=== PATIENT | female | born 1945 | race Caucasian/White ===

== ENCOUNTER → 2017-08-10 10:48 | Outpatient (CLI) | payer MEDICARE, OTHER, SELFPAY ==
[2017-08-10 12:30] LABS: Vitamin D,25 Hydroxy 35.5 ng/mL (19.95-100.01)
[2017-08-10 12:52] LABS: ALB/GLOB Ratio 0.9 RATIO (0.9-2.4); AST(SGOT) 27 U/L (15-37); Alanine Aminotransfer ALT/SGPT 30 U/L (13-56); Albumin, Serum 3.6 g/dL (3.2-5.0); Alkaline Phosphatase 84 U/L (45-117); Anion Gap 8 (5-15); BUN 15 mg/dL (7-18); BUN/Creat Ratio 23.6 RATIO (10-20); Calcium,Total 8.6 mg/dL (8.5-10.1); Chloride 103 mmol/L (98-107); Creatinine, Serum 0.64 mg/dL (0.55-1.02); EST Glomerular Filtration Rate 97 mL/min (>60); Est Glom Filt Rate - Afr Amer 118 mL/min (>60); Free T3 2.3 pg/mL (2.18-3.98); Glucose 109 mg/dL (74-106); Potassium 3.9 mmol/L (3.5-5.1); Protein, Total 7.6 g/dL (6.4-8.2); Sodium Level 138 mmol/L (136-145); T4 Free Direct 1.17 ng/dL (0.76-1.46); Thyroid Stim Hormone (TSH) 1.46 uIU/mL (0.358-3.74)
== END ==
PROVIDERS: Family Provider Family Medicine; PCP Family Medicine; Visit Provider Internal Medicine Endocrinology, Diabetes & Metabolism
DX: E05.00 Thyrotoxicosis with diffuse goiter without thyrotoxic crisis or storm (principal); E55.9 Vitamin D deficiency, unspecified
CPT/HCPCS: 36415; 80053; 82306; 84439; 84443; 84481

== ENCOUNTER 2017-09-28 06:40 | Day surgery (SDC) | payer MEDICARE, OTHER, SELFPAY ==
[2017-09-28 07:10] VITALS: BP 167/78; PULSE 73; TEMP 36.5; O2SAT 98; BMI 29.5
[2017-09-28 08:32] VITALS: BP 117/55; BP 167/78; PULSE 67; RESP 16; TEMP 36.3; O2SAT 93
--- NOTE | 2017-09-28 08:33 | HP.PCM_ITS ---
Problem List (1) History of colon polyps Status: Acute History of Present Illness Date of Admission: 09/28/17 The patient is a 72 year old F with a history of colon polyps. She presents today for a repeat colonoscopy. Past Medical History Past Medical History (Chronic Problems): Chronic Problems Osteoarthritis (Chronic) Hypertension (Chronic) Obesity (BMI 30.0-34.9) (Chronic) Allergies Sulfa (Sulfonamide Antibiotics) Allergy (Verified 09/24/17 09:16) Hives ciprofloxacin [From Cipro] Adverse Reaction (Verified 09/24/17 09:16) Diarrhea prednisone Adverse Reaction (Verified 09/24/17 09:16) Other PAIN IN LEGS Home Medications: Ambulatory Orders Medication Instructions Recorded Cranberry 900 mg PO DAILY 09/25/15 L.acidoph,Paracasei, B.lactis 1 each PO DAILY 09/25/15 [Probiotic] Calcium Carbonate/Vitamin D3 2 each PO DAILY 05/09/16 [Calcium 500-Vit D3 200 Tablet] Ergocalciferol [Vitamin D] 50,000 unit PO Q14D 05/09/16 Methimazole [Tapazole] 2.5 mg PO MOWEFR 05/09/16 Vit C/E/Zn/Coppr/Lutein/Zeaxan 1 each PO DAILY 05/09/16 [Preservision Areds 2 Softgel] Surgical History: cholecystectomy - 1989, hysterectomy - 1982 Psychiatric History: No pertinent psych hx [employer] 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 Smoking Status: Never smoker - *Family History Maternal History Items: Cancer, Heart Disease Paternal History Items: No pertinent history VTE Information - Inpt Only VTE Present on Admission: No VTE Mechan Device Prophylaxis: None VTE Pharm Prophylaxis ordered?: No Reason prophylaxis not ordered:: Treatment Not Indicated Patient Problems: Active and Suspected Problems History of colon polyps (Acute) - Physical Exam Lungs: Clear to auscultation Cardiovascular: Regular rate, Regular Rhythm, No murmurs Abdomen: Bowel Sounds Present, Soft, Non Tender, Non-Distended Vital Signs Temp Pulse BP Pulse Ox 97.7 F L 73 167/78 H 98 09/28/17 07:10 09/28/17 07:10 09/28/17 07:10 09/28/17 07:10 Oxygen Delivery Method Room Air Weight: 177 lb 4.026 oz Body Mass Index (BMI) 29.5 Assessment/Plan Active and Suspected Problems History of colon polyps (Acute) My plan is to perform a colonoscopy on her.
--- NOTE | 2017-09-28 08:33 | PCM.OPRPT ---
Problem List (1) History of colon polyps Status: Acute Report of Operation Date of Procedure: 09/28/17 Pre-Operative Diagnosis: Z86.010 history of colonic polyps Post-Operative Diagnosis: Same Surgery/Procedure Performed:: [id number] colonoscopy Type of Anesthesia:: MAC Description of Procedure: Patient was brought into the endoscopy suite. Placed in the left lateral decubitus position. Was given graded anesthesia. Colonoscope was inserted into the rectum. The scope was directed through the sigmoid colon, descending colon, transverse colon, ascending colon, to the cecum without difficulty. Operative findings: 1. Cecum: Normal appearance no mass lesions normal ileocecal valve. 2. Ascending colon: Normal appearance no mass lesions. 3. Transverse colon: Normal appearance no mass lesions. 4. Descending colon: Normal appearance no mass lesions. 5. Sigmoid colon: Normal appearance no mass lesions scattered diverticuli were identified. 6. Rectum: Normal appearance no mass lesions retroflexion showed internal hemorrhoids the scope was withdrawn digital rectal exam was performed showing no masses within the anus. Patient will need to have another colonoscopy in 5 years. - Admit VTE Documentation VTE Present on Admission: No VTE Mechan Device Prophylaxis: None VTE Pharm Prophylaxis ordered?: No Reason prophylaxis not ordered:: Treatment Not Indicated
[2017-09-28 08:35] VITALS: BP 120/58; BP 167/78; PULSE 66; RESP 16; O2SAT 97
[2017-09-28 08:40] VITALS: BP 121/60; BP 167/78; PULSE 64; RESP 16; O2SAT 95
[2017-09-28 08:47] VITALS: BP 123/59; BP 167/78; PULSE 58; RESP 16; TEMP 37.2; O2SAT 95
== END 2017-09-28 09:20 | disposition home or self-care (01) ==
LOC: EN 06:42 → AC 06:43
PROVIDERS: Family Provider Family Medicine; PCP Family Medicine; Visit Provider Surgery
PROC: 0DJD8ZZ Inspection of Lower Intestinal Tract, Via Natural or Artificial Opening Endoscopic (ICD-10-PCS; CPT 45378; principal; 2017-09-28 08:10)
DX: Z12.11 Encounter for screening for malignant neoplasm of colon (principal); Z86.010 Personal history of colon polyps; I10 Essential (primary) hypertension; M19.90 Unspecified osteoarthritis, unspecified site; E66.9 Obesity, unspecified; Z68.29 Body mass index [BMI] 29.0-29.9, adult; Z79.899 Other long term (current) drug therapy; Z78.0 Asymptomatic menopausal state; Z90.710 Acquired absence of both cervix and uterus; Z90.49 Acquired absence of other specified parts of digestive tract
CPT/HCPCS: G0105; J7120

== ENCOUNTER → 2017-10-08 12:10 | Outpatient (CLI) | payer MEDICARE, OTHER, SELFPAY ==
[2017-10-08 14:36] LABS: Thyroid Stim Hormone (TSH) 0.17 uIU/mL (0.358-3.74)
== END ==
PROVIDERS: Family Provider Family Medicine; PCP Family Medicine; Visit Provider Internal Medicine Endocrinology, Diabetes & Metabolism
DX: E05.00 Thyrotoxicosis with diffuse goiter without thyrotoxic crisis or storm (principal)
CPT/HCPCS: 36415; 84443

== ENCOUNTER → 2017-10-30 12:13 | Outpatient (CLI) | payer MEDICARE, OTHER, SELFPAY ==
[2017-10-30 14:04] LABS: Absolute Lymphocyte Count 1.87 X10^3/ul (0.83-4.51); Absolute Neutrophil Count 3.9 X10^3/uL (2.0-7.7); Basophil# 0.02 X10^3/uL; Basophil% 0.3 % (0-1); Eosinophil# 0.26 X10^3/uL; Hematocrit 41.8 % (37-47); Hemoglobin 13.9 g/dl (12.0-15.0); Lymphocyte # 1.87 X10^3/ul (4.0); Lymphocyte % 28.7 % (19-41); Mean Corp Hgb Conc 33.3 g/gl (32-36); Mean Corpuscular Hgb 31.4 pg (27.0-32.0); Mean Corpuscular Volume 94.4 fL (81-99); Mean Platelet Vol. 10.8 fl (6.2-12.0); Monocyte# 0.47 X10^3/uL; Monocyte% 7.2 % (0-10); Neutrophil # 3.89 X10^3/uL (2.7-7.7); Neutrophil % 59.8 % (47-70); Platelet Count 248 K/mm3 (150-450); RBC Distribution Width CV 12.1 % (11.6-14.6); RBC Distribution Width SD 41.2 fl (35.1-43.9); Red Blood Count 4.43 M/mm3 (4.2-5.4); White Blood Count 6.5 K/mm3 (4.4-11.0)
[2017-10-30 14:09] LABS: POSITIVE COUNT NO; POSITIVE DIFFERENTIAL NO; POSITIVE MORPHOLOGY NO
[2017-10-30 14:33] LABS: Erythrocyte Sedimentation Rate 17 mm/hr (0-30)
== END ==
PROVIDERS: Family Provider Family Medicine; PCP Family Medicine; Visit Provider Family Medicine
DX: R59.0 Localized enlarged lymph nodes (principal)
CPT/HCPCS: 36415; 85025; 85652

== ENCOUNTER → 2017-11-12 11:45 | Outpatient (CLI) | payer MEDICARE, OTHER, SELFPAY ==
[2017-11-12 13:43] LABS: ALB/GLOB Ratio 0.9 RATIO (0.9-2.4); AST(SGOT) 33 U/L (15-37); Alanine Aminotransfer ALT/SGPT 32 U/L (13-56); Albumin, Serum 3.6 g/dL (3.2-5.0); Alkaline Phosphatase 100 U/L (45-117); Anion Gap 4 (5-15); BUN 19 mg/dL (7-18); BUN/Creat Ratio 29.7 RATIO (10-20); Calcium,Total 9.5 mg/dL (8.5-10.1); Chloride 106 mmol/L (98-107); Creatinine, Serum 0.64 mg/dL (0.55-1.02); EST Glomerular Filtration Rate 97 mL/min (>60); Est Glom Filt Rate - Afr Amer 117 mL/min (>60); Free T3 2.3 pg/mL (2.18-3.98); Glucose 95 mg/dL (74-106); Potassium 3.9 mmol/L (3.5-5.1); Protein, Total 7.6 g/dL (6.4-8.2); Sodium Level 140 mmol/L (136-145); T4 Total, Thyroxin 10.8 ug/dL (4.8-13.9)
[2017-11-14 07:08] LABS: Thyroid Stim Immunoglob 1.23 IU/L (0.00-0.55)
[2017-11-14 10:45] LABS: Anti-Thyroglobulin AB < 1.0 IU/mL (0.0-0.9); Thyroglobulin, Serum Qt. 52.7 ng/mL (1.5-38.5); Thyroid Peroxidase AB 15 IU/mL (0-34)
== END ==
PROVIDERS: Family Provider Family Medicine; PCP Family Medicine; Visit Provider Internal Medicine Endocrinology, Diabetes & Metabolism
DX: E05.20 Thyrotoxicosis with toxic multinodular goiter without thyrotoxic crisis or storm (principal)
CPT/HCPCS: 36415; 80053; 84432; 84436; 84445; 84481; 86376; 86800

== ENCOUNTER → 2017-12-21 11:34 | Outpatient (CLI) | payer MEDICARE, OTHER, SELFPAY ==
[2017-12-21 12:57] LABS: ALB/GLOB Ratio 0.8 RATIO (0.9-2.4); AST(SGOT) 26 U/L (15-37); Alanine Aminotransfer ALT/SGPT 29 U/L (13-56); Albumin, Serum 3.4 g/dL (3.2-5.0); Alkaline Phosphatase 90 U/L (45-117); Anion Gap 8 (5-15); BUN 14 mg/dL (7-18); BUN/Creat Ratio 22.3 RATIO (10-20); Calcium,Total 8.5 mg/dL (8.5-10.1); Chloride 105 mmol/L (98-107); Cholesterol 202 mg/dL (200); Creatinine, Serum 0.63 mg/dL (0.55-1.02); EST Glomerular Filtration Rate 99 mL/min (>60); Est Glom Filt Rate - Afr Amer 119 mL/min (>60); Free T3 2.6 pg/mL (2.18-3.98); Glucose 105 mg/dL (74-106); High Density Lipoprotein 48 mg/dL; Potassium 3.8 mmol/L (3.5-5.1); Protein, Total 7.4 g/dL (6.4-8.2); Sodium Level 142 mmol/L (136-145); T4 Free Direct 1.21 ng/dL (0.76-1.46); Thyroid Stim Hormone (TSH) 0.34 uIU/mL (0.358-3.74); Triglycerides 330 mg/dL; Very Low Density Lipoprotein 66 mg/dL (5-40)
[2017-12-21 13:06] LABS: Microalbumin,Random Urine 5.6 mg/L (NO RANGE EST.); Microalbumin:Creatinine Ratio 8.4 mg/g CRE (<30 mg/g CRE)
== END ==
PROVIDERS: Family Provider Family Medicine; PCP Family Medicine; Visit Provider Family Medicine
DX: Z00.00 Encounter for general adult medical examination without abnormal findings (principal); I10 Essential (primary) hypertension; E05.00 Thyrotoxicosis with diffuse goiter without thyrotoxic crisis or storm
CPT/HCPCS: 36415; 80053; 80061; 82043; 82570; 84439; 84443; 84481

== ENCOUNTER → 2017-12-29 10:31 | Outpatient (CLI) | payer MEDICARE, OTHER, SELFPAY ==
--- NOTE | 2017-12-29 10:34 | BI_ITS ---
MAMMOGRAPHY - BILATERAL SCREENING REASON FOR EXAM: Female, 72 years old. Routine annual screening examination. PERTINENT HISTORY: Non-contributory. TECHNIQUE: Digital bilateral breast daina (3D mammographic acquisition) in the CC and MLO projections. 2-D mediolateral oblique (MLO) and craniocaudad (CC) views of both breasts were obtained. CAD: Full Field Digital Mammography with Computer Added Detection was performed. COMPARISON: Comparison is made with prior abdomen examination dated June 02, 2014. FINDINGS: Breast Composition: There are scattered areas of fibroglandular density. There are no dominant masses or suspicious calcifications. Stable appearance of the benign appearing left axillary lymph nodes. No other significant abnormalities are identified. There has been no significant change since the prior study. BI/SCREENING MAMM (CAD), BILAT IMPRESSION: Stable bilateral screening mammogram. Yearly follow-up mammogram recommended. (A) ASSESSMENT CATEGORY: BIRADS Category 2: Benign. A letter regarding these results will be sent to the patient by the facility within 30 days. Approximately 10% of breast cancers are not detected by mammography. A normal mammogram should not delay biopsy of a clinically suspicious abnormality. [id number] Electronically Signed: Casey Ríos MD at 7:57 EDT Tel [phone], Service support ,
== END ==
PROVIDERS: Family Provider Family Medicine; PCP Family Medicine; Visit Provider Family Medicine
DX: Z12.31 Encounter for screening mammogram for malignant neoplasm of breast (principal)
CPT/HCPCS: 77063; 77067

== ENCOUNTER → 2018-02-03 08:13 | Outpatient (CLI) | payer MEDICARE, OTHER, SELFPAY ==
[2018-02-03 10:51] LABS: Cholesterol 197 mg/dL (200); Free T3 2.6 pg/mL (2.18-3.98); High Density Lipoprotein 55 mg/dL; T4 Free Direct 1.16 ng/dL (0.76-1.46); Thyroid Stim Hormone (TSH) 0.73 uIU/mL (0.358-3.74); Triglycerides 114 mg/dL; Very Low Density Lipoprotein 23 mg/dL (5-40)
== END ==
PROVIDERS: Family Provider Family Medicine; PCP Family Medicine; Visit Provider Internal Medicine Endocrinology, Diabetes & Metabolism
DX: E05.00 Thyrotoxicosis with diffuse goiter without thyrotoxic crisis or storm (principal); E66.9 Obesity, unspecified
CPT/HCPCS: 36415; 80061; 84439; 84443; 84481

== ENCOUNTER → 2018-03-15 09:35 | Outpatient (CLI) | payer MEDICARE, OTHER, SELFPAY ==
[2018-03-15 13:04] LABS: Free T3 2.7 pg/mL (2.18-3.98); T4 Free Direct 1.22 ng/dL (0.76-1.46); Thyroid Stim Hormone (TSH) 0.57 uIU/mL (0.358-3.74)
== END ==
PROVIDERS: Family Provider Family Medicine; PCP Family Medicine; Visit Provider Internal Medicine Endocrinology, Diabetes & Metabolism
DX: E05.00 Thyrotoxicosis with diffuse goiter without thyrotoxic crisis or storm (principal)
CPT/HCPCS: 36415; 84439; 84443; 84481

== ENCOUNTER → 2018-04-21 12:34 | Outpatient (CLI) | payer MEDICARE, OTHER, SELFPAY ==
[2018-04-23 09:56] LABS: Anti-Thyroglobulin AB < 1.0 IU/mL (0.0-0.9); Thyroglobulin, Serum Qt. 68.6 ng/mL (1.5-38.5); Thyroid Peroxidase AB 12 IU/mL (0-34)
== END ==
PROVIDERS: Family Provider Family Medicine; PCP Family Medicine; Referring Provider Family Medicine; Visit Provider Family Medicine
DX: E05.90 Thyrotoxicosis, unspecified without thyrotoxic crisis or storm (principal)
CPT/HCPCS: 36415; 84432; 86376; 86800

== ENCOUNTER → 2018-06-15 13:55 | Outpatient (CLI) | payer MEDICARE, OTHER, SELFPAY ==
[2018-06-15 16:07] LABS: ALB/GLOB Ratio 0.9 RATIO (0.9-2.4); AST(SGOT) 26 U/L (15-37); Alanine Aminotransfer ALT/SGPT 28 U/L (13-56); Albumin, Serum 3.5 g/dL (3.2-5.0); Alkaline Phosphatase 79 U/L (45-117); Anion Gap 9 (5-15); BUN 17 mg/dL (7-18); BUN/Creat Ratio 23.6 RATIO (10-20); Calcium,Total 8.7 mg/dL (8.5-10.1); Chloride 106 mmol/L (98-107); Creatinine, Serum 0.72 mg/dL (0.55-1.02); EST Glomerular Filtration Rate 84 mL/min (>60); Est Glom Filt Rate - Afr Amer 102 mL/min (>60); Free T3 2.7 pg/mL (2.18-3.98); Globulin 3.9 g/dL (2.2-4.2); Glucose 100 mg/dL (74-106); Potassium 3.9 mmol/L (3.5-5.1); Protein, Total 7.4 g/dL (6.4-8.2); Sodium Level 141 mmol/L (136-145); T4 Total, Thyroxin 10.8 ug/dL (4.8-13.9); Thyroid Stim Hormone (TSH) 0.63 uIU/mL (0.358-3.74)
--- OUTSIDE RECORDS SUMMARY | 2018-08-01 18:48 | XMS RPT_ITS ---
:1945 Author Organization OHIP Support Name Relationship Address Phone ARNALEX LAKESHIA Unavailable [address] + [place] [address] R Unavailable Unavailable Unavailable ARNOLD, LAKESHIA Unavailable [address] + [place] [address] R Unavailable Unavailable Unavailable ARNOLD, LAKESHIA Unavailable [address] + [place] [address] R Unavailable Unavailable Unavailable ARNOLD, LAKESHIA Unavailable [address] + [place] [address] R Unavailable Unavailable Unavailable ARNOLD, LAKESHIA Unavailable [address] + [place] [address] R Unavailable Unavailable Unavailable ARNOLD, LAKESHIA Unavailable [address] + [place] [address] R Unavailable Unavailable Unavailable ARNOLD, LAKESHIA Unavailable [address] + [place] [address] R Unavailable Unavailable Unavailable ARNOLD, LAKESHIA Unavailable [address] + [place] [address] R Unavailable Unavailable Unavailable ARNOLD, LAKESHIA Unavailable [address] + [place] [address] R Unavailable Unavailable Unavailable ARNOLD, LAKESHIA Unavailable [address] + [place] [address] R Unavailable Unavailable Unavailable ARNOLD, LAKESHIA Unavailable [address] + [place] [address] R Unavailable Unavailable Unavailable ARNOLD, LAKESHIA Unavailable [address] + [place] [address] Unavailable [address] + [place] [address] LAKESHIA LANCASTER Unavailable [address] + [place] [address] Unavailable [address] + [place] [address] Care Team Providers Name Role Phone HERNANDO RAMIREZ Attending Unavailable Newell, Alex Primary Care Unavailable WIETECHA, HERNANDO Attending Unavailable WIETECHA, HERNANDO Referring Unavailable Newell, Alex Primary Care Unavailable Nurse, Surgery Attending Unavailable Newell, Alex Referring Unavailable Newell, Alex Primary Care Unavailable [place], Kedar Attending Unavailable [place], Kedar Referring Unavailable Newell, Alex Primary Care Unavailable [place], Kedar Attending Unavailable [place], Kedar Referring Unavailable Newell, Alex Primary Care Unavailable Maday, Kedar Consulting Unavailable WIETECHA, HERNANDO Attending Unavailable Newell, Alex Primary Care Unavailable Newell, Alex Attending Unavailable Newell, Alex Primary Care Unavailable WIETECHA, HERNANDO Attending Unavailable Newell, Alex Primary Care Unavailable Newell, Alex Attending Unavailable Newell, Alex Primary Care Unavailable Newell, Alex Attending Unavailable Newell, Alex Primary Care Unavailable WIETECHA, HERNANDO Attending Unavailable Newell, Alex Primary Care Unavailable WIETECHA, HERNANDO Attending Unavailable Newell, Alex Primary Care Unavailable Newell, Alex Attending Unavailable Newell, Alex Referring Unavailable Newell, Alex Primary Care Unavailable PROBLEMS PROBLEMS DATE TYPE CONDITION / CODE ATTENDING STATUS SOURCE 06/15/2018 Unknown 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 Hospital without thyrotoxic Repository crisis or storm / E05.00(ICD-10) 06/15/2018 Unknown E55.9 - Vitamin D HERNANDO RAMIREZ Active [place] deficiency, Community unspecified / Hospital E55.9(ICD-10) Repository PROCEDURES PROCEDURES No Procedure Records FoundRESULTS RESULTS COMPREHENSIVE METABOLIC Collected: 06/15/2018 Status: F Source: [place] 1:56 PM [facility] REPOSITORY TYPE CODE TESTS RESULT OUT OF RANGE REFERENCE UNITS LAB L501.0100 74-106 mg/dL Normal GLU 100 Result Comment: Fasting Glucose result from 100 to 125 mg/dL suggests IMPAIRED HOMEOSTASIS per A.D.A. criteria. Please note revised GLUCOSE reference range effective 2017. LAB L501.1000 7-18 mg/dL Normal BUN 17 LAB L501.1100 0.55-1.02 mg/dL Normal CREAT,SERUM 0.72 Result Comment: The validity of the calculated GFR AND GFRAA in patients over 70 years has not been determined. Clinical correlation is essential. LAB L501.1110 >60 mL/min Normal EST GFR 84 Result Comment: Non- GFR Calc LAB L501.1115 >60 mL/min Normal EST GFR - AA 102 Result Comment: GFR Calc LAB L501.1300 10-20 RATIO High BUN/CRE 23.6 LAB L501.1500 6.4-8.2 g/dL T Normal PROT 7.4 LAB L501.1800 3.2-5.0 g/dL Normal ALB 3.5 LAB L501.1950 2.2-4.2 g/dL Normal GLOB 3.9 LAB L501.2000 0.9-2.4 RATIO Normal A/G 0.9 LAB L501.2200 8.5-10.1 mg/dL CA Normal 8.7 LAB L501.4100 15-37 U/L Normal AST 26 LAB L501.4305 45-117 U/L Normal ALK P 79 LAB L501.4405 13-56 U/L Normal ALT 28 LAB L501.4600 0.20-1.00 mg/dL T Normal BILI 0.40 LAB L501.5300 136-145 mmol/L NA Normal 141 LAB L501.5600 3.5-5.1 mmol/L K Normal 3.9 LAB L501.5900 98-107 mmol/L CL Normal 106 LAB L501.6100 21.0-32.0 mmol/L Normal CO2 26.0 LAB L501.6200 5-15 Normal GAP 9 Performed By: #### L500.4050, L501.71923, L501.9310, L501.9520 #### [facility] [address] [place], [place], [address] FREE T3 Collected: 06/15/2018 Status: F Source: [place] 1:56 PM [facility] REPOSITORY TYPE CODE TESTS RESULT OUT OF RANGE REFERENCE UNITS LAB L501.48611 2.18-3.98 pg/mL Normal FREE T3 2.7 Performed By: #### L500.4050, L501.89822, L501.9310, L501.9520 #### [facility] [address] [place], [address] T4 TOTAL, THYROXIN Collected: 06/15/2018 Status: F Source: [place] 1:56 PM [facility] REPOSITORY TYPE CODE TESTS RESULT OUT OF RANGE REFERENCE UNITS LAB L501.9310 4.8-13.9 ug/dL T4 Normal THYROXIN 10.8 Performed By: #### L500.4050, L501.67612, L501.9310, L501.9520 #### [facility] [address] [place], [address] THYROID STIM HORMONE Collected: 06/15/2018 Status: F Source: [place] (TSH) 1:56 PM [facility] REPOSITORY TYPE CODE TESTS RESULT OUT OF RANGE REFERENCE UNITS LAB L501.9520 0.358-3.74 uIU/mL Normal TSH 0.63 Performed By: #### L500.4050, L501.73344, L501.9310, L501.9520 #### [facility] [address] [place], [place], [address] VITAMIN D,25 HYDROXY Collected: 06/15/2018 Status: F Source: [place] 1:56 PM [facility] REPOSITORY TYPE CODE TESTS RESULT OUT OF RANGE REFERENCE UNITS LAB L506.1000 29.95-100.01 ng/mL Normal Vitamin D 63.0 25-OH Result Comment: Vitamin D 25(OH) Status Range Deficiency <20 ng/mL (50nmol/L) Insuffciency 20 - 30 ng/mL (50 - 75 nmol/L) Sufficiency 30 - 100 ng/mL (75 - 250 nmol/L) Toxicity >100 ng/mL (>250 nmol/L) Performed By: #### L506.1000 #### [facility] [address] [place], [address] THYROGLOBULIN W/ANTI-TG Collected: 04/21/2018 Status: F Source: [place] AB 12:38 PM [facility] REPOSITORY TYPE CODE TESTS RESULT OUT OF RANGE REFERENCE UNITS LAB L3300.7025 0.0-0.9 IU/mL Normal ANTI-TG < 1.0 AB Result Comment: Thyroglobulin Antibody measured by Baldo Jeison Methodology LAB L3400.1030 1.5-38.5 ng/mL High THYROGLOB 68.6 Result Comment: According to the National Academy of Clinical Biochemistry, the reference interval for Thyroglobulin (TG) should be related to euthyroid patients and not for patients who underwent thyroidectomy. TG reference intervals for these patients depend on the residual mass of the thyroid tissue left after surgery. Establishing a post-operative baseline is recommended. The assay limit of quantitation is 0.1 ng/mL Thyroglobulin measured by Baldo [place] Immunometric Assay Performed By: #### L3300.6820 #### [facility] (refer to report for specific site) refer to report for address and phone number THYROID PEROXIDASE AB Collected: 04/21/2018 Status: F Source: [place] 12:38 PM [facility] REPOSITORY TYPE CODE TESTS RESULT OUT OF RANGE REFERENCE UNITS LAB L3300.6900 0-34 IU/mL Normal TPO AB 12 6676 Result Comment: Performed at: [address] [id number] [employer] Facilitator: Romie Styles PhD, Phone: [phone] Performed By: #### L3300.6900 #### [facility] (refer to report for specific site) refer to report for address and phone number FREE T3 Collected: 03/15/2018 Status: F Source: [place] 9:37 AM [facility] REPOSITORY TYPE CODE TESTS RESULT OUT OF RANGE REFERENCE UNITS LAB L501.10612 2.18-3.98 pg/mL Normal FREE T3 2.7 Performed By: #### L501.01094, L501.9520, L506.0400 #### [facility] [address] [place] [address], [address] THYROID STIM HORMONE Collected: 03/15/2018 Status: F Source: [place] (TSH) 9:37 AM [facility] REPOSITORY TYPE CODE TESTS RESULT OUT OF RANGE REFERENCE UNITS LAB L501.9520 0.358-3.74 uIU/mL Normal TSH 0.57 Performed By: #### L501.14805, L501.9520, L506.0400 #### [facility] [address] [place], [address] T4 FREE DIRECT Collected: 03/15/2018 Status: F Source: [place] 9:37 AM [facility] REPOSITORY TYPE CODE TESTS RESULT OUT OF RANGE REFERENCE UNITS LAB L506.0400 0.76-1.46 ng/dL Normal T4 FREE 1.22 DIRECT Performed By: #### L501.69604, L501.9520, L506.0400 #### [facility] [address] [place], [address] LIPID PROFILE Collected: 02/03/2018 Status: F Source: [place] 8:14 AM [facility] REPOSITORY Order Comment: ORDERED LIPID ORDERED TSH T3F T4F Order Date: 12/28/17 Order Info: [id number] - LIPID TYPE CODE TESTS RESULT OUT OF RANGE REFERENCE UNITS LAB L501.4900 200 mg/dL Normal CHOL 197 Result Comment: <200 mg/dL Desirable 200-240 mg/dL Borderline >240 mg/dL High Risk LAB L501.5000 mg/dL Normal TRIG 114 Result Comment: The drugs N-Acetylcysteine and Metamizole may falsely depress this assay. Serum Triglycerides Reference Interval Normal <150 mg/dL Borderline high 150 - 199 mg/dL High 200 - 499 mg/dL Very High > or = 500 mg/dL LAB L501.6400 mg/dL Normal HDL 55 Result Comment: The drugs N-Acetylcysteine and Metamizole may falsely depress this assay. Reference Range HDL <40 mg/dL Low HDL Cholesterol HDL >or= 60 mg/dL High HDL Cholesterol LAB L501.6500 0-130 mg/dL Normal LDL 119 LAB L501.6600 5-40 mg/dL Normal VLDL 23 Performed By: #### L500.4100 #### [facility] [address] [place], [address] FREE T3 Collected: 02/03/2018 Status: F Source: [place] 8:14 AM [facility] REPOSITORY Order Comment: ORDERED LIPID ORDERED TSH T3F T4F Order Date: 12/28/17 Order Info: [id number] - LIP[place] TYPE CODE TESTS RESULT OUT OF RANGE REFERENCE UNITS LAB L501.16429 2.18-3.98 pg/mL Normal FREE T3 2.6 Performed By: #### L501.97500, L501.9520, L506.0400 #### [facility] [address] [place], [address] THYROID STIM HORMONE Collected: 02/03/2018 Status: F Source: [place] (TSH) 8:14 AM [facility] REPOSITORY Order Comment: ORDERED LIPID ORDERED TSH T3F T4F Order Date: 12/28/17 Order Info: [id number] - LIP[place] TYPE CODE TESTS RESULT OUT OF RANGE REFERENCE UNITS LAB L501.9520 0.358-3.74 uIU/mL Normal TSH 0.73 Performed By: #### L501.39729, L501.9520, L506.0400 #### [facility] [address] [place], [address] T4 FREE DIRECT Collected: 02/03/2018 Status: F Source: [place] 8:14 AM [facility] REPOSITORY Order Comment: ORDERED LIPID ORDERED TSH T3F T4F Order Date: 12/28/17 Order Info: [id number] - LIPID TYPE CODE TESTS RESULT OUT OF RANGE REFERENCE UNITS LAB L506.0400 0.76-1.46 ng/dL Normal T4 FREE 1.16 DIRECT Performed By: #### L501.06949, L501.9520, L506.0400 #### [facility] [address] [place], [address] SCREENING MAMM (CAD), Observed: 12/29/2017 Status: F Source: [place] BILAT 10:35 AM [facility] REPOSITORY [facility] Imaging Services [address] [place] [id number] SCREENING MAMM (CAD), BILAT MR#: [id number] Acct: [id number] Name: KWAKU MCKEON Rep #: [id number] : 1945 F 72 From: Casey Ríos MD PCP: Alex Newell MD Status: REG CLI Study: SCREENING MAMM (CAD), BILAT Date of Exam: 12/29/17 Exam# [id number] Ordering Dr: Alex Newell MD MAMMOGRAPHY - BILATERAL SCREENING REASON FOR EXAM: Female, 72 years old. Routine annual screening examination. PERTINENT HISTORY: Non-contributory. TECHNIQUE: Digital bilateral breast daina (3D mammographic acquisition) in the CC and MLO projections. 2-D mediolateral oblique (MLO) and craniocaudad (CC) views of both breasts were obtained. CAD: Full Field Digital Mammography with Computer Added Detection was performed. COMPARISON: Comparison is made with prior abdomen examination dated June 02, 2014. FINDINGS: Breast Composition: There are scattered areas of fibroglandular density. There are no dominant masses or suspicious calcifications. Stable appearance of the benign appearing left axillary lymph nodes. No other significant abnormalities are identified. There has been no significant change since the prior study. BI/SCREENING MAMM (CAD), BILAT IMPRESSION: Stable bilateral screening mammogram. Yearly follow-up mammogram recommended. (A) ASSESSMENT CATEGORY: BIRADS Category 2: Benign. A letter regarding these results will be sent to the patient by the facility within 30 days. Approximately 10% of breast cancers are not detected by mammography. A normal mammogram should not delay biopsy of a clinically suspicious abnormality. [id number] Electronically Signed: Casey Ríos MD at 7:57 EDT Tel [phone], Service support , CC: Alex Newell MD Employment Case Manager: Signed COMPREHENSIVE METABOLIC Collected: 12/21/2017 Status: F Source: [place] 11:36 AM [facility] REPOSITORY Order Comment: Order Date: 12/17/17 Order Info: [id number] - CMP ORDERED: LIPID, JOSE RAFAEL, CMP ORDERED: CMP, TSH, T4F, T3F Order Info: [id number] - LIP[place] TYPE CODE TESTS RESULT OUT OF RANGE REFERENCE UNITS LAB L501.0100 74-106 mg/dL Normal GLU 105 Result Comment: Fasting Glucose result from 100 to 125 mg/dL suggests IMPAIRED HOMEOSTASIS per A.D.A. criteria. Please note revised GLUCOSE reference range effective 2017. LAB L501.1000 7-18 mg/dL Normal BUN 14 LAB L501.1100 0.55-1.02 mg/dL Normal CREAT,SERUM 0.63 Result Comment: The validity of the calculated GFR AND GFRAA in patients over 70 years has not been determined. Clinical correlation is essential. LAB L501.1110 >60 mL/min Normal EST GFR 99 Result Comment: Non- GFR Calc LAB L501.1115 >60 mL/min Normal EST GFR - AA 119 Result Comment: GFR Calc LAB L501.1300 10-20 RATIO High BUN/CRE 22.3 LAB L501.1500 6.4-8.2 g/dL T Normal PROT 7.4 LAB L501.1800 3.2-5.0 g/dL Normal ALB 3.4 LAB L501.1950 2.2-4.2 g/dL Normal GLOB 4.0 LAB L501.2000 0.9-2.4 RATIO Low A/G 0.8 LAB L501.2200 8.5-10.1 mg/dL CA Normal 8.5 LAB L501.4100 15-37 U/L Normal AST 26 LAB L501.4305 45-117 U/L Normal ALK P 90 LAB L501.4405 13-56 U/L Normal ALT 29 LAB L501.4600 0.20-1.00 mg/dL T Normal BILI 0.50 LAB L501.5300 136-145 mmol/L NA Normal 142 LAB L501.5600 3.5-5.1 mmol/L K Normal 3.8 LAB L501.5900 98-107 mmol/L CL Normal 105 LAB L501.6100 21.0-32.0 mmol/L Normal CO2 29.0 LAB L501.6200 5-15 Normal GAP 8 Performed By: #### L500.4050, L500.4100, L502.0250 #### [facility] [address] [place], [address] LIPID PROFILE Collected: 12/21/2017 Status: F Source: [place] 11:36 AM [facility] REPOSITORY Order Comment: Order Date: 12/17/17 Order Info: [id number] - CMP ORDERED: LIPID, JOSE RAFAEL, CMP ORDERED: CMP, TSH, T4F, T3F Order Info: [id number] - LIPID TYPE CODE TESTS RESULT OUT OF RANGE REFERENCE UNITS LAB L501.4900 200 mg/dL High CHOL 202 Result Comment: <200 mg/dL Desirable 200-240 mg/dL Borderline >240 mg/dL High Risk LAB L501.5000 mg/dL High TRIG 330 Result Comment: The drugs N-Acetylcysteine and Metamizole may falsely depress this assay. Serum Triglycerides Reference Interval Normal <150 mg/dL Borderline high 150 - 199 mg/dL High 200 - 499 mg/dL Very High > or = 500 mg/dL LAB L501.6400 mg/dL Normal HDL 48 Result Comment: The drugs N-Acetylcysteine and Metamizole may falsely depress this assay. Reference Range HDL <40 mg/dL Low HDL Cholesterol HDL >or= 60 mg/dL High HDL Cholesterol LAB L501.6500 0-130 mg/dL Normal LDL 88 LAB L501.6600 5-40 mg/dL High VLDL 66 Performed By: #### L500.4050, L500.4100, L502.0250 #### [facility] [address] [place], [address] MICROALB:CREAT Collected: 12/21/2017 Status: F Source: [place] RATIO,RANDOM UR 11:36 AM [facility] REPOSITORY Order Comment: Order Date: 12/17/17 Order Info: [id number] - [place] TYPE CODE TESTS RESULT OUT OF RANGE REFERENCE UNITS LAB L501.1200 NO RANGE EST. mg/dL Normal UR CREAT 66.60 LAB L502.0500 NO RANGE EST. mg/L Normal 5.6 MICROALBUMIN ,UR LAB L502.0600 <30 mg/g CRE mg/g CRE Normal 8.4 MALB:CREAT Performed By: #### L500.4050, L500.4100, L502.0250 #### [facility] [address] [place], [address] FREE T3 Collected: 12/21/2017 Status: F Source: [place] 11:36 AM [facility] REPOSITORY Order Comment: Order Date: 12/17/17 Order Info: [id number] - CMP ORDERED: LIPID, JOSE RAFAEL, CMP ORDERED: CMP, TSH, T4F, T3F Order Info: [id number] - LIPID TYPE CODE TESTS RESULT OUT OF RANGE REFERENCE UNITS LAB L501.31852 2.18-3.98 pg/mL Normal FREE T3 2.6 Performed By: #### L501.45651, L501.9520, L506.0400 #### [facility] [address] [place], [address] THYROID STIM HORMONE Collected: 12/21/2017 Status: F Source: [place] (TSH) 11:36 AM [facility] REPOSITORY Order Comment: Order Date: 12/17/17 Order Info: [id number] - NATALIE LYONS ORDERED: LIPID, JOSE RAFAEL, CMP ORDERED: CMP, TSH, T4F, T3F Order Info: [id number] - LIPID TYPE CODE TESTS RESULT OUT OF RANGE REFERENCE UNITS LAB L501.9520 0.358-3.74 uIU/mL Low TSH 0.34 Performed By: #### L501.66751, L501.9520, L506.0400 #### [facility] [address] [place], [address] T4 FREE DIRECT Collected: 12/21/2017 Status: F Source: [place] 11:36 AM [facility] REPOSITORY Order Comment: Order Date: 12/17/17 Order Info: [id number] - NATALIE LYONS ORDERED: LIPID, JOSE RAFAEL, CMP ORDERED: CMP, TSH, T4F, T3F Order Info: [id number] - LIPID TYPE CODE TESTS RESULT OUT OF RANGE REFERENCE UNITS LAB L506.0400 0.76-1.46 ng/dL Normal T4 FREE 1.21 DIRECT Performed By: #### L501.12804, L501.9520, L506.0400 #### [facility] [place], [address] COMPREHENSIVE METABOLIC Collected: 11/12/2017 Status: F Source: [place] 11:47 AM [facility] REPOSITORY TYPE CODE TESTS RESULT OUT OF RANGE REFERENCE UNITS LAB L501.0100 74-106 mg/dL Normal GLU 95 Result Comment: Please note revised GLUCOSE reference range effective 2017. LAB L501.1000 7-18 mg/dL High BUN 19 LAB L501.1100 0.55-1.02 mg/dL Normal CREAT,SERUM 0.64 Result Comment: The validity of the calculated GFR AND GFRAA in patients over 70 years has not been determined. Clinical correlation is essential. LAB L501.1110 >60 mL/min Normal EST GFR 97 Result Comment: Non- GFR Calc LAB L501.1115 >60 mL/min Normal EST GFR - AA 117 Result Comment: GFR Calc LAB L501.1300 10-20 RATIO High BUN/CRE 29.7 LAB L501.1500 6.4-8.2 g/dL T Normal PROT 7.6 LAB L501.1800 3.2-5.0 g/dL Normal ALB 3.6 LAB L501.1950 2.2-4.2 g/dL Normal GLOB 4.0 LAB L501.2000 0.9-2.4 RATIO Normal A/G 0.9 LAB L501.2200 8.5-10.1 mg/dL CA Normal 9.5 LAB L501.4100 15-37 U/L Normal AST 33 LAB L501.4305 45-117 U/L Normal ALK P 100 LAB L501.4405 13-56 U/L Normal ALT 32 LAB L501.4600 0.20-1.00 mg/dL T Normal BILI 0.50 LAB L501.5300 136-145 mmol/L NA Normal 140 LAB L501.5600 3.5-5.1 mmol/L K Normal 3.9 LAB L501.5900 98-107 mmol/L CL Normal 106 LAB L501.6100 21.0-32.0 mmol/L Normal CO2 30.0 LAB L501.6200 5-15 Low GAP 4 Performed By: #### L500.4050, L501.79154, L501.9310 #### [facility] [address] [place], [address] FREE T3 Collected: 11/12/2017 Status: F Source: [place] 11:47 AM [facility] REPOSITORY TYPE CODE TESTS RESULT OUT OF RANGE REFERENCE UNITS LAB L501.78896 2.18-3.98 pg/mL Normal FREE T3 2.3 Performed By: #### L500.4050, L501.26661, L501.9310 #### [facility] [address] [place], [address] T4 TOTAL, THYROXIN Collected: 11/12/2017 Status: F Source: [place] 11:47 AM [facility] REPOSITORY TYPE CODE TESTS RESULT OUT OF RANGE REFERENCE UNITS LAB L501.9310 4.8-13.9 ug/dL T4 Normal THYROXIN 10.8 Performed By: #### L500.4050, L501.76129, L501.9310 #### [facility] [address] [place], [address] THYROGLOBULIN W/ANTI-TG Collected: 11/12/2017 Status: F Source: [place] AB 11:47 AM [facility] REPOSITORY TYPE CODE TESTS RESULT OUT OF RANGE REFERENCE UNITS LAB L3300.7025 0.0-0.9 IU/mL Normal ANTI-TG < 1.0 AB Result Comment: Thyroglobulin Antibody measured by Baldo Jeison Methodology LAB L3400.1030 1.5-38.5 ng/mL High THYROGLOB 52.7 Result Comment: According to the National Academy of Clinical Biochemistry, the reference interval for Thyroglobulin (TG) should be related to euthyroid patients and not for patients who underwent thyroidectomy. TG reference intervals for these patients depend on the residual mass of the thyroid tissue left after surgery. Establishing a post-operative baseline is recommended. The assay limit of quantitation is 0.1 ng/mL Thyroglobulin measured by Baldo Jeison Immunometric Assay Performed By: #### L3300.6820, L3300.6900, L3400.4700 #### [facility] (refer to report for specific site) refer to report for address and phone number THYROID PEROXIDASE AB Collected: 11/12/2017 Status: F Source: [place] 11:47 AM [facility] REPOSITORY TYPE CODE TESTS RESULT OUT OF RANGE REFERENCE UNITS LAB L3300.6900 0-34 IU/mL Normal TPO AB 15 6676 Result Comment: Performed at: - [facility] [id number] [employer] Facilitator: Jesse Guillaume MD, Phone: [phone] Performed at: - [facility] [id number] [employer] Facilitator: Romie Styles PhD, Phone: [phone] Performed By: #### L3300.6820, L3300.6900, L3400.4700 #### [facility] (refer to report for specific site) refer to report for address and phone number THYROID STIM Collected: 11/12/2017 Status: F Source: [place] [facility] 11:47 AM [facility] REPOSITORY TYPE CODE TESTS RESULT OUT OF REFERENCE UNITS RANGE LAB L3400.4700 0.00-0.55 IU/L High TSI [id number] 1.23 Performed By: #### L3300.6820, L3300.6900, L3400.4700 #### [facility] (refer to report for specific site) refer to report for address and phone number CBC W/DIFF, AUTOMATED Collected: 10/30/2017 Status: F Source: [place] 12:14 PM [facility] REPOSITORY TYPE CODE TESTS RESULT OUT OF RANGE REFERENCE UNITS LAB L100.1000 4.4-11.0 K/mm3 Normal WBC 6.5 LAB L100.1200 4.2-5.4 M/mm3 Normal RBC 4.43 LAB L100.1300 12.0-15.0 g/dl Normal HGB 13.9 LAB L100.1400 37-47 % Normal HCT 41.8 LAB L100.1500 81-99 fL Normal MCV 94.4 LAB L100.1600 27.0-32.0 pg Normal MCH 31.4 LAB L100.1700 32-36 g/gl Normal MCHC 33.3 LAB L100.1810 11.6-14.6 % Normal RDW CV 12.1 LAB L100.1820 35.1-43.9 fl Normal RDW SD 41.2 LAB L100.1900 150-450 K/mm3 Normal PLT 248 LAB L100.2000 6.2-12.0 fl Normal MPV 10.8 LAB L100.2100 47-70 % Normal NEUT% 59.8 LAB L100.2200 19-41 % Normal LY% 28.7 LAB L100.2300 0-10 % Normal MONO% 7.2 LAB L100.2400 0-5 % Normal EO% 4.0 LAB L100.2500 0-1 % Normal BASO% 0.3 LAB L100.2550 0.0-0.9 % Normal IM GRAN % 0.000 Result Comment: IG% - Immature Granulocytes (promyelocytes, myelocytes and metamyelocytes) > 1% indicates that a LEFT SHIFT is Present. LAB L100.2620 2.0-7.7 X10 3/uL Normal Absolute Neut 3.9 LAB L100.2720 0.83-4.51 X10 3/ul Normal Absolute Lymph 1.87 Performed By: #### L100.0100, L101.9900 #### [facility] [address] [place], [address] ERYTHROCYTE SED RATE Collected: 10/30/2017 Status: F Source: [place] 12:14 PM [facility] REPOSITORY TYPE CODE TESTS RESULT OUT OF RANGE REFERENCE UNITS LAB L102.0000 0-30 mm/hr Normal SED RATE 17 Performed By: #### L100.0100, L101.9900 #### [facility] [address] [facility], [address] OPERATIVE REPORT Observed: 10/09/2017 Status: F Source: [place] 9:40 AM [facility] REPOSITORY [facility] Medical Records Department [address] [place] [address] Operative Report 09/28/17 0833 MR#: [id number] Acct: [id number] Name: KWAKU MCKEON Rep #: [id number] : 1945 72 From: Kedar Nassar MD PCP: Alex Newell MD Status: [place]P [facility] Location: EN Problem List (1) History of colon polyps Status: Acute Report of Operation Date of Procedure: 09/28/17 Pre-Operative Diagnosis: Z86.010 history of colonic polyps Post-Operative Diagnosis: Same Surgery/Procedure Performed:: 18299 colonoscopy Type of Anesthesia:: MAC Description of Procedure: Patient was brought into the endoscopy suite. Placed in the left lateral decubitus position. Was given graded anesthesia. Colonoscope was inserted into the rectum. The scope was directed through the sigmoid colon, descending colon, transverse colon, ascending colon, to the cecum without difficulty. Operative findings: 1. Cecum: Normal appearance no mass lesions normal ileocecal valve. 2. Ascending colon: Normal appearance no mass lesions. 3. Transverse colon: Normal appearance no mass lesions. 4. Descending colon: Normal appearance no mass lesions. 5. Sigmoid colon: Normal appearance no mass lesions scattered diverticuli were identified. 6. Rectum: Normal appearance no mass lesions retroflexion showed internal hemorrhoids the scope was withdrawn digital rectal exam was performed showing no masses within the anus. Patient will need to have another colonoscopy in 5 years. - Admit VTE Documentation VTE Present on Admission: No VTE Mechan Device Prophylaxis: None VTE Pharm Prophylaxis ordered?: No Reason prophylaxis not ordered:: Treatment Not Indicated 10/09/17 0940 <Electronically signed by Kedar Nassar MD> Date Kedar Nassar MD CC: Kedar Nassar MD; Alex Newell MD Signed THYROID STIM HORMONE Collected: 10/08/2017 Status: F Source: [place] (TSH) 12:11 PM [facility] REPOSITORY TYPE CODE TESTS RESULT OUT OF RANGE REFERENCE UNITS LAB L501.9520 0.358-3.74 uIU/mL Low TSH 0.17 Performed By: #### L501.9520 #### [facility] [address] [place], [address] HISTORY AND PHYSICAL Observed: 09/28/2017 Status: F Source: [place] EXAM 8:33 AM [facility] REPOSITORY [facility] Medical Records Department [address] [place] [address] History and Physical 09/28/17 0831 MR#: [id number] Acct: [id number] Name: KWAKU MCKEON Con[place] Rep #: [id number] : 1945 72 From: Kedar Nassar MD PCP: Alex Newell MD Status: REG [facility] Y Location: [place] [address] Problem List (1) History of colon polyps Status: Acute History of Present Illness Date of Admission: 09/28/17 The patient is a 72 year old F with a history of colon polyps. She presents today for a repeat colonoscopy. Past Medical History Past Medical History (Chronic Problems): Chronic Problems Osteoarthritis (Chronic) Hypertension (Chronic) Obesity (BMI 30.0-34.9) (Chronic) Allergies Sulfa (Sulfonamide Antibiotics) Allergy (Verified 09/24/17 09:16) Hives ciprofloxacin [From Cipro] Adverse Reaction (Verified 09/24/17 09:16) Diarrhea prednisone Adverse Reaction (Verified 09/24/17 09:16) Other PAIN IN LEGS Home Medications: Ambulatory Orders Medication Instructions Recorded Cranberry 900 mg PO DAILY 09/25/15 Surgical History: cholecystectomy - 1989, hysterectomy - 1982 Psychiatric History: No pertinent psych hx SLIP COVER SEWER History: No pertinent SLIP COVER SEWER history Smoking Status: Never smoker - *Family History Maternal History Items: Cancer, Heart Disease Paternal History Items: No pertinent history VTE Information - Inpt Only VTE Present on Admission: No VTE Mechan Device Prophylaxis: None VTE Pharm Prophylaxis ordered?: No Reason prophylaxis not ordered:: Treatment Not Indicated Patient Problems: Active and Suspected Problems History of colon polyps (Acute) - Physical Exam Lungs: Clear to auscultation Cardiovascular: Regular rate, Regular Rhythm, No murmurs Abdomen: Bowel Sounds Present, Soft, Non Tender, Non-Distended Vital Signs Temp Pulse BP Pulse Ox 97.7 F L 73 167/78 H 98 09/28/17 07:10 09/28/17 07:10 09/28/17 07:10 09/28/17 07:10 Oxygen Delivery Method Room Air Weight: 177 lb 4.026 oz Body Mass Index (BMI) 29.5 Assessment/Plan Active and Suspected Problems History of colon polyps (Acute) My plan is to perform a colonoscopy on her. 09/28/17 0833 <Electronically signed by Kedar Nassar MD> Date [facility] Signature: Date (if applicable) CC: Kedar Nassar MD; Alex Newell MD Signed VITAMIN D,25 HYDROXY Collected: 08/10/2017 Status: F Source: [place] 10:50 AM [facility] REPOSITORY TYPE CODE TESTS RESULT OUT OF RANGE REFERENCE UNITS LAB L506.1000 19.95-100.01 ng/mL Normal Vitamin D 35.5 25-OH Result Comment: Vitamin D 25(OH) Status Range Deficiency <20 ng/mL (50nmol/L) Insuffciency 20 - 30 ng/mL (50 - 75 nmol/L) Sufficiency 30 - 100 ng/mL (75 - 250 nmol/L) Toxicity >100 ng/mL (>250 nmol/L) Performed By: #### L506.1000 #### [facility] [address] [place], [address] COMPREHENSIVE METABOLIC Collected: 08/10/2017 Status: F Source: [facility] 10:50 AM [facility] REPOSITORY TYPE CODE TESTS RESULT OUT OF RANGE REFERENCE UNITS LAB L501.0100 74-106 mg/dL High GLU 109 LAB L501.1000 7-18 mg/dL Normal BUN 15 LAB L501.1100 0.55-1.02 mg/dL Normal 0.64 CREAT,SERUM Result Comment: The validity of the calculated GFR AND GFRAA in patients over 70 years has not been determined. Clinical correlation is essential. LAB L501.1110 >60 mL/min Normal EST GFR 97 Result Comment: Non- GFR Calc LAB L501.1115 >60 mL/min Normal EST GFR - AA 118 Result Comment: GFR Calc LAB L501.1300 10-20 RATIO High BUN/CRE 23.6 LAB L501.1500 6.4-8.2 g/dL T Normal PROT 7.6 LAB L501.1800 3.2-5.0 g/dL Normal ALB 3.6 LAB L501.1950 2.2-4.2 g/dL Normal GLOB 4.0 LAB L501.2000 0.9-2.4 RATIO Normal A/G 0.9 LAB L501.2200 8.5-10.1 mg/dL CA Normal 8.6 LAB L501.4100 15-37 U/L Normal AST 27 LAB L501.4305 45-117 U/L Normal ALK P 84 LAB L501.4405 13-56 U/L Normal ALT 30 Result Comment: Please note revised ALT reference range effective 2017. LAB L501.4600 0.20-1.00 mg/dL Normal T BILI 0.70 LAB L501.5300 136-145 mmol/L Normal NA 138 LAB L501.5600 3.5-5.1 mmol/L Normal K 3.9 LAB L501.5900 98-107 mmol/L Normal CL 103 LAB L501.6100 21.0-32.0 mmol/L Normal CO2 27.0 LAB L501.6200 5-15 Normal GAP 8 Performed By: #### L500.4050, L501.53406, L501.9520, L506.0400 #### [facility] [address] [place], [address] FREE T3 Collected: 08/10/2017 Status: F Source: [place] 10:50 AM [facility] REPOSITORY TYPE CODE TESTS RESULT OUT OF RANGE REFERENCE UNITS LAB L501.80939 2.18-3.98 pg/mL Normal FREE T3 2.3 Performed By: #### L500.4050, L501.61517, L501.9520, L506.0400 #### [facility] [address] [place], [address] THYROID STIM HORMONE Collected: 08/10/2017 Status: F Source: [place] (TSH) 10:50 AM [facility] REPOSITORY TYPE CODE TESTS RESULT OUT OF RANGE REFERENCE UNITS LAB L501.9520 0.358-3.74 uIU/mL Normal TSH 1.46 Performed By: #### L500.4050, L501.42967, L501.9520, L506.0400 #### [facility] [address] [place], [address] T4 FREE DIRECT Collected: 08/10/2017 Status: F Source: [place] 10:50 AM [facility] REPOSITORY TYPE CODE TESTS RESULT OUT OF RANGE REFERENCE UNITS LAB L506.0400 0.76-1.46 ng/dL Normal T4 FREE 1.17 DIRECT Performed By: #### L500.4050, L501.46651, L501.9520, L506.0400 #### [facility] [address] [place], [address] ALLERGIES ALLERGIES DATE TYPE / CODE NAME / CODE REACTION SEVERITY SOURCE 09/24/2017 Drug Sulfa Hives Unknown [facility] Allergy/4160 (Sulfonamide Hospital 64545(SNOMED Antibiotics)/ Repository CT) [id number](RX NORM) 09/24/2017 Drug prednisone/F0 Other Unknown [facility] Allergy/4160 98343118(RXNO Hospital 13078(SNOMED RM) Repository CT) 09/24/2017 Drug ciprofloxacin Diarrhea Unknown [facility] Allergy/4160 /[id number](R Hospital 46235(SNOMED XNORM) Repository CT) ENCOUNTERS ENCOUNTERS ADMIT/DISCHARGE ACCOUNT ADMITTING ENCOUNTER LOCATION SOURCE NUMBER CLASS 06/15/2018 [id number] Ambulatory [place] 0 [facility] Hospital ing:MFPLAB Repository 04/21/2018 [id number] Ambulatory [place] 8 [facility] Hospital ing:MTLAB Repository 03/15/2018 [id number] Ambulatory [place] 7 [facility] ing:MFPLAB Repository 02/03/2018 [id number] Ambulatory [place] 2 [facility] Hospital ing:MFPLAB Repository 12/29/2017 [id number] Ambulatory [place] 5 [facility] ing:OPBI Repository 12/21/2017 [id number] Ambulatory [place] 3 [facility] Hospital ing:MFPLAB Repository 11/12/2017 [id number] Ambulatory [place] 0 [facility] Hospital ing:MFPLAB Repository 10/30/2017 [id number] Ambulatory [place] 9 [facility] Hospital ing:MFPLAB Repository 10/08/2017 [id number] Ambulatory [place] 3 [facility] Hospital ing:MFPLAB Repository 09/28/2017/ [id number] Ambulatory [place] 8 7 [facility] ing:EN Repository 09/28/2017 [id number] Ambulatory BMSBuilding:B [place] 2 MS.[facility] Repository 08/10/2017/ [id number] Ambulatory BMSBuilding:B [place] 8 3 MS.[facility] Repository 08/10/2017 [id number] Ambulatory [place] 7 [facility] ing:MFPLAB Repository PAYERS PAYERS ENCOUNTER GUARANTOR PAYER SUBSCRIBER SOURCE 06/15/2018 KWAKU L Primary [place]WAKU L [place] [id number] Insurance:MEDICARE SHALLENBERGERDOB [place] [address] [place] [address] BPolicy Number: : [id number] [id number] Repository [address]Skw: 330) Date:2018-06-15 [phone] () 06/15/2018 Secondary KWAKU L [place] [facility] [id number] Hospital Number: Repository [id number] Date:4046-68-83PB [address] [place] [phone]: 06/15/2018 Tertiary NOT GIVENUNK [place] Insurance:SELF PAY [facility] Number: Effective Repository Date:2018-06-15 04/21/2018 KWAKU L Primary KWAKU L [place] [id number] Insurance:MEDICARE SHALLENBERGERDOB [place] [address] [address] BPolicy Number: : [id number], [place] [id number] Repository [address]Ixj: 330) Date:2018-04-21 [phone] () 04/21/2018 Secondary KWAKU L [place] Insurance:[facility] : [id number] Hospital Number: Repository [id number] Date:1758-13-89TE [address] [place] [address]ZG: 04/21/2018 Tertiary NOT GIVENUNK [place] Insurance:SELF PAY [facility] Number: Effective Repository Date:2018-04-21 03/15/2018 KWAKU L Primary KWAKU L [place] [id number] Insurance:MEDICARE [place] [address] [place] [address] [place] BPolicy Number: : [id number], [place] [id number] Repository [address]Wgr: (330) Date:2018-03-15 [phone] () 03/15/2018 Secondary KWAKU L [place] Insurance:HUMANA SHALLENBERGERDOB [facility] COMMERCIALPolicy : [id number] Hospital Number: Repository [id number] Date:5596-99-27JE [address] [place] [address]TH: 03/15/2018 Tertiary NOT GIVENUNK [place] Insurance:SELF PAY [facility] Number: Effective Repository Date:2018-03-15 02/03/2018 KWAKU L Primary KWAKU L [place] [id number] Insurance:MEDICARE SHALLENBERGERDOB [place] [address] [address] BPolicy Number: : [id number], [place] [id number] Repository [address]Tjn: 330) Date:2018-02-03 [phone] () 02/03/2018 Secondary [place]WAKU L [place] Insurance:HUMANA SHALLENBERGERDOB [facility] Center[facility] : [id number] Hospital Number: Repository [id number] Date:3746-23-24SL [address] [place] [phone]: 02/03/2018 Tertiary NOT GIVENUNK [place] Insurance:SELF PAY [facility] Number: Effective Repository Date:2018-02-03 12/29/2017 KWAKU L Primary KWAKU L [place] [id number] Insurance:MEDICARE [place] [address] [place] BPolicy Number: : [id number], [place] [id number] Repository [address]Vzc: (330) Date:2017-12-24 [phone] () 12/29/2017 Secondary KWAKU L [place] Insurance:HUMANA SHALLENBERGERDOB [facility] COMMERCIALPolicy : [id number] Hospital Number: Repository [id number] Date:4805-58-91NJ [address] [place] [phone]: 12/29/2017 Tertiary NOT GIVENUNK [place] Insurance:SELF PAY Community [facility] Number: Effective Repository Date:2017-12-24 12/21/2017 KWAKU L Primary KWAKU L [place] [id number] Insurance:[facility] [facility] [address] [place] PART A BPolicy Number: : [id number], [place] [id number] Repository [address]Atn: Date:2017-12-21 ~33 0-4 (HP) 12/21/2017 Secondary KWAKU L [place] [facility] COMM[facility]CIAL[facility] : [id number] Hospital Number: Repository [id number] Date:6162-02-92YC [address] [address]QR: 12/21/2017 Tertiary NOT GIVENUNK [place] Insurance:SELF PAY [facility] Number: Effective Repository Date:2017-12-21 11/12/2017 KWAKU L Primary KWAKU L [place] [id number] Insurance:MEDICARE [facility]ENBERGERTelnexusUn[facility] [address] [place] PART A BPolicy Number: : [id number] [id number] Repository [address]Kwf: Date:2017-11-12 ~33 0-4 (HP) 11/12/2017 Secondary KWAKU L [place] Insurance:HUMANA [facility]GV[facility] COMMERCIALPolicy : [id number] Hospital Number: Repository [id number] Date:3358-49-43GF[address] [address]TZ: 11/12/2017 Tertiary NOT GIVENUNK [place] Insurance:SELF PAY [facility] Number: Effective Repository Date:2017-11-12 10/30/2017 KWAKU L Primary KWAKU L [place] [id number] Insurance:MEDICARE SHALLENBERGERDOB [facility] [address] PART A BPolicy Number: : [id number], [place] [id number] Repository [address]Suu: Date:2017-10-30 ~33 0-4 (HP) 10/30/2017 Secondary KWAKU L [place] Insurance:HUMANA SHALLENBERGERDOB Community COMMERCIALPolicy : [id number] Hospital Number: Repository [id number] Date:8681-05-28SQ [address] [place] [address]KC: 10/30/2017 Tertiary NOT GIVENUNK [place] Insurance:SELF PAY Community INSURANCEPolicy Hospital Number: Effective Repository Date:2017-10-30 10/08/2017 KWAKU L Primary KWAKU L [place] [id number] Insurance:MEDICARE [facility]GERDOUnc [facility] PART A BPolicy Number: : [id number], [place] [id number] Repository [address]Iqq: Date:2017-10-08 ~33 0-4 (HP) 10/08/2017 Secondary KWAKU L [place] Insurance:HUMANA SHALLENBERGERDOB [facility] COMMERCIALPolicy : [id number] Hospital Number: Repository [id number] Date:2641-65-60XA[address] [address]DB: 10/08/2017 Tertiary NOT GIVENUNK [place] Insurance:SELF PAY Community INSURANCEPoly Hospital Number: Effective Repository Date:2017-10-08 09/28/2017 KWAKU L Primary KWAKU L [place] [id number] Insurance:MEDICARE SHALLENBERGERDOB [facility] [address] [place] PART A BPolicy Number: : [id number], [place] [id number] Repository [address]Hkb: Date:2017-08-10 ~33 0-4 (HP) 09/28/2017 Secondary KWAKU L [place] Insurance:HUMANA SHALLENBERGERDOB [facility] COMMERCIALPolicy : [id number] Hospital Number: Repository [id number] Date:8947-07-60BT [address] [place] [address]PY: 09/28/2017 Tertiary NOT GIVENUNK [place] Insurance:SELF PAY [facility] Number: Effective Repository Date:2017-08-10 09/28/2017 KWAKU L Primary KWAKU L [place] [id number] Insurance:MEDICARE SHALLENBERGERDOB [facility] [address] [place] PART A BPolicy Number: : [id number], [place] [id number] Repository [address]Jgg: Date:2017-08-10 ~33 0-4 (HP) 09/28/2017 Secondary KWAKU L [place] Insurance:HUMANA SHALLENBERGERDOB [facility] COMMERCIALPolicy : [id number] Hospital Number: Repository [id number] Date:3403-47-79LY[address] [address]WB: 09/28/2017 Tertiary NOT GIVENUNK [place] Insurance:SELF PAY [facility] Number: Effective Repository Date:2017-09-28 08/10/2017 KWAKU L Primary KWAKU L [place] [id number] Insurance:MEDICARE SHALLENBERGERDOB [facility] [address] [place] PART A BPolicy Number: : [id number], [place] [id number] Repository [address]Fgy: Date:2017-08-10 ~33 0-4 (HP) 08/10/2017 Secondary KWAKU L [place] Insurance:HUMANA SHALLENBERGERDOB [facility] COMMERCIALPolicy : [id number] Hospital Number: Repository [id number] Date:6256-60-77BM[address] [address]KZ: 08/10/2017 Tertiary NOT GIVENUNK [place] Insurance:SELF PAY [facility] Number: Effective Repository Date:2017-08-10 08/10/2017 Kwaku L Primary Kwaku L [place] [id number] Insurance:MEDICARE ShallenbergerDOB [facility] [address] PART A BPolicy Number: : [id number] [place] [id number] Repository [address]Diw: Date:2017-08-10 ~33 0-4 (HP) 08/10/2017 Secondary Kwaku L [place] Insurance:AFSHAN Silva [facility] COMMERCIALPolicy : [id number] Hospital Number: Repository [id number] Date:0851-37-48[address] [address]IQZPBUK[address], [place] [address]DG: 08/10/2017 Tertiary NOT GIVENUNK [place] Insurance:SELF PAY [facility] Number: Effective Repository Date:2017-08-10
== END ==
PROVIDERS: Family Provider Family Medicine; PCP Family Medicine; Visit Provider Internal Medicine Endocrinology, Diabetes & Metabolism
DX: E05.00 Thyrotoxicosis with diffuse goiter without thyrotoxic crisis or storm (principal); E55.9 Vitamin D deficiency, unspecified
CPT/HCPCS: 36415; 80053; 82306; 84436; 84443; 84481

== ENCOUNTER → 2018-08-16 08:17 | Outpatient (CLI) | payer MEDICARE, OTHER, SELFPAY ==
[2018-08-16 11:25] LABS: ALB/GLOB Ratio 0.9 RATIO (0.9-2.4); AST(SGOT) 27 U/L (15-37); Alanine Aminotransfer ALT/SGPT 36 U/L (13-56); Albumin, Serum 3.6 g/dL (3.2-5.0); Alkaline Phosphatase 78 U/L (45-117); Anion Gap 11 (5-15); BUN 14 mg/dL (7-18); BUN/Creat Ratio 21.2 RATIO (10-20); Calcium,Total 8.8 mg/dL (8.5-10.1); Chloride 108 mmol/L (98-107); Creatinine, Serum 0.66 mg/dL (0.55-1.02); EST Glomerular Filtration Rate 93 mL/min (>60); Est Glom Filt Rate - Afr Amer 112 mL/min (>60); Free T3 3.4 pg/mL (2.18-3.98); Glucose 90 mg/dL (74-106); Potassium 3.9 mmol/L (3.5-5.1); Protein, Total 7.6 g/dL (6.4-8.2); Sodium Level 144 mmol/L (136-145); T4 Total, Thyroxin 11.8 ug/dL (4.8-13.9); Thyroid Stim Hormone (TSH) 0.02 uIU/mL (0.358-3.74)
== END ==
PROVIDERS: Family Provider Family Medicine; PCP Family Medicine; Visit Provider Internal Medicine Endocrinology, Diabetes & Metabolism
DX: E05.00 Thyrotoxicosis with diffuse goiter without thyrotoxic crisis or storm (principal); M85.9 Disorder of bone density and structure, unspecified
CPT/HCPCS: 36415; 80053; 84436; 84443; 84481

== ENCOUNTER → 2018-08-23 13:31 | Outpatient (CLI) | payer MEDICARE, OTHER, SELFPAY ==
[2018-08-23 16:20] LABS: Free T3 2.9 pg/mL (2.18-3.98); T4 Free Direct 1.43 ng/dL (0.76-1.46); Thyroid Stim Hormone (TSH) 0.03 uIU/mL (0.358-3.74)
== END ==
PROVIDERS: Family Provider Family Medicine; PCP Family Medicine; Visit Provider Internal Medicine Endocrinology, Diabetes & Metabolism
DX: E05.00 Thyrotoxicosis with diffuse goiter without thyrotoxic crisis or storm (principal)
CPT/HCPCS: 36415; 84439; 84443; 84481

== ENCOUNTER → 2018-09-27 09:07 | Outpatient (CLI) | payer MEDICARE, OTHER, SELFPAY ==
[2018-09-27 11:15] LABS: Vitamin D,25 Hydroxy 63.9 ng/mL (29.95-100.01)
[2018-09-27 11:20] LABS: ALB/GLOB Ratio 0.9 RATIO (0.9-2.4); AST(SGOT) 28 U/L (15-37); Alanine Aminotransfer ALT/SGPT 27 U/L (13-56); Albumin, Serum 3.5 g/dL (3.2-5.0); Alkaline Phosphatase 76 U/L (45-117); Anion Gap 5 (5-15); BUN 12 mg/dL (7-18); BUN/Creat Ratio 18.3 RATIO (10-20); Chloride 107 mmol/L (98-107); Creatinine, Serum 0.66 mg/dL (0.55-1.02); EST Glomerular Filtration Rate 93 mL/min (>60); Est Glom Filt Rate - Afr Amer 113 mL/min (>60); Free T3 2.8 pg/mL (2.18-3.98); Globulin 3.9 g/dL (2.2-4.2); Glucose 93 mg/dL (74-106); Potassium 3.9 mmol/L (3.5-5.1); Protein, Total 7.4 g/dL (6.4-8.2); Sodium Level 140 mmol/L (136-145); T4 Free Direct 1.21 ng/dL (0.76-1.46)
== END ==
PROVIDERS: Family Provider Family Medicine; PCP Family Medicine; Referring Provider Family Medicine; Visit Provider Internal Medicine Endocrinology, Diabetes & Metabolism
DX: E05.00 Thyrotoxicosis with diffuse goiter without thyrotoxic crisis or storm (principal); E55.9 Vitamin D deficiency, unspecified
CPT/HCPCS: 36415; 80053; 82306; 84439; 84443; 84481

== ENCOUNTER → 2018-11-18 10:21 | Outpatient (CLI) | payer MEDICARE, OTHER, SELFPAY ==
[2018-11-18 12:46] LABS: Free T3 2.8 pg/mL (2.18-3.98); T4 Total, Thyroxin 11.6 ug/dL (4.8-13.9); Thyroid Stim Hormone (TSH) 0.45 uIU/mL (0.358-3.74)
== END ==
PROVIDERS: Family Provider Family Medicine; PCP Family Medicine; Referring Provider Family Medicine; Visit Provider Internal Medicine Endocrinology, Diabetes & Metabolism
DX: E05.00 Thyrotoxicosis with diffuse goiter without thyrotoxic crisis or storm (principal)
CPT/HCPCS: 36415; 84436; 84443; 84481

== ENCOUNTER → 2019-01-07 09:33 | Outpatient (CLI) | payer MEDICARE, OTHER, SELFPAY ==
[2019-01-07 13:24] LABS: ALB/GLOB Ratio 0.9 RATIO (0.9-2.4); AST(SGOT) 26 U/L (15-37); Alanine Aminotransfer ALT/SGPT 29 U/L (13-56); Albumin, Serum 3.6 g/dL (3.2-5.0); Alkaline Phosphatase 80 U/L (45-117); Anion Gap 8 (5-15); BUN 15 mg/dL (7-18); BUN/Creat Ratio 21.9 RATIO (10-20); Calcium,Total 9.2 mg/dL (8.5-10.1); Chloride 107 mmol/L (98-107); Cholesterol 206 mg/dL (200); Creatinine, Serum 0.68 mg/dL (0.55-1.02); EST Glomerular Filtration Rate 89 mL/min (>60); Est Glom Filt Rate - Afr Amer 108 mL/min (>60); Free T3 2.6 pg/mL (2.18-3.98); Globulin 3.8 g/dL (2.2-4.2); Glucose 106 mg/dL (74-106); High Density Lipoprotein 55 mg/dL; Potassium 3.9 mmol/L (3.5-5.1); Protein, Total 7.4 g/dL (6.4-8.2); Sodium Level 141 mmol/L (136-145); T4 Free Direct 1.17 ng/dL (0.76-1.46); Thyroid Stim Hormone (TSH) 0.63 uIU/mL (0.358-3.74); Triglycerides 82 mg/dL; Very Low Density Lipoprotein 16 mg/dL (5-40)
== END ==
PROVIDERS: Family Provider Family Medicine; PCP Family Medicine; Visit Provider Family Medicine
DX: Z00.00 Encounter for general adult medical examination without abnormal findings (principal); E05.00 Thyrotoxicosis with diffuse goiter without thyrotoxic crisis or storm
CPT/HCPCS: 36415; 80053; 80061; 84439; 84443; 84481

== ENCOUNTER → 2019-02-15 11:54 | Outpatient (CLI) | payer MEDICARE, OTHER, SELFPAY ==
[2019-02-15 14:28] LABS: ALB/GLOB Ratio 0.9 RATIO (0.9-2.4); AST(SGOT) 27 U/L (15-37); Alanine Aminotransfer ALT/SGPT 26 U/L (13-56); Albumin, Serum 3.7 g/dL (3.2-5.0); Alkaline Phosphatase 83 U/L (45-117); Anion Gap 6 (5-15); BUN 10 mg/dL (7-18); BUN/Creat Ratio 15.1 RATIO (10-20); Calcium,Total 8.7 mg/dL (8.5-10.1); Chloride 106 mmol/L (98-107); Creatinine, Serum 0.66 mg/dL (0.55-1.02); EST Glomerular Filtration Rate 92 mL/min (>60); Est Glom Filt Rate - Afr Amer 111 mL/min (>60); Globulin 3.9 g/dL (2.2-4.2); Glucose 97 mg/dL (74-106); Protein, Total 7.6 g/dL (6.4-8.2); Sodium Level 139 mmol/L (136-145); T4 Free Direct 1.32 ng/dL (0.76-1.46); Thyroid Stim Hormone (TSH) 0.35 uIU/mL (0.358-3.74)
== END ==
PROVIDERS: Family Provider Family Medicine; PCP Family Medicine; Referring Provider Family Medicine; Visit Provider Internal Medicine Endocrinology, Diabetes & Metabolism
DX: E05.00 Thyrotoxicosis with diffuse goiter without thyrotoxic crisis or storm (principal)
CPT/HCPCS: 36415; 80053; 84439; 84443; 84481

== ENCOUNTER → 2019-04-18 12:12 | Outpatient (CLI) | payer MEDICARE, OTHER, SELFPAY ==
[2019-04-18 14:30] LABS: ALB/GLOB Ratio 0.9 RATIO (0.9-2.4); AST(SGOT) 27 U/L (15-37); Alanine Aminotransfer ALT/SGPT 26 U/L (13-56); Albumin, Serum 3.5 g/dL (3.2-5.0); Alkaline Phosphatase 89 U/L (45-117); Anion Gap 7 (5-15); BUN 11 mg/dL (7-18); BUN/Creat Ratio 17.2 RATIO (10-20); Calcium,Total 8.8 mg/dL (8.5-10.1); Chloride 106 mmol/L (98-107); Creatinine, Serum 0.64 mg/dL (0.55-1.02); EST Glomerular Filtration Rate 96 mL/min (>60); Est Glom Filt Rate - Afr Amer 116 mL/min (>60); Free T3 2.8 pg/mL (2.18-3.98); Glucose 96 mg/dL (74-106); Protein, Total 7.5 g/dL (6.4-8.2); Sodium Level 142 mmol/L (136-145); T4 Free Direct 1.17 ng/dL (0.76-1.46); Thyroid Stim Hormone (TSH) 0.47 uIU/mL (0.358-3.74)
== END ==
PROVIDERS: Family Provider Family Medicine; PCP Family Medicine; Visit Provider Internal Medicine Endocrinology, Diabetes & Metabolism
DX: E05.00 Thyrotoxicosis with diffuse goiter without thyrotoxic crisis or storm (principal)
CPT/HCPCS: 36415; 80053; 84439; 84443; 84481

== ENCOUNTER → 2019-06-24 13:38 | Outpatient (CLI) | payer MEDICARE, OTHER, SELFPAY ==
[2019-06-24 15:50] LABS: Thyroid Stim Hormone (TSH) 0.34 uIU/mL (0.358-3.74)
== END ==
PROVIDERS: Family Provider Family Medicine; PCP Family Medicine; Referring Provider Family Medicine; Visit Provider Internal Medicine Endocrinology, Diabetes & Metabolism
DX: E05.00 Thyrotoxicosis with diffuse goiter without thyrotoxic crisis or storm (principal)
CPT/HCPCS: 36415; 84443

== ENCOUNTER → 2019-10-27 08:42 | Outpatient (CLI) | payer MEDICARE, OTHER, SELFPAY ==
[2019-10-27 10:12] LABS: Vitamin D,25 Hydroxy 48.7 ng/mL
[2019-10-27 10:36] LABS: ALB/GLOB Ratio 0.9 RATIO (0.9-2.4); AST(SGOT) 20 U/L (15-37); Alanine Aminotransfer ALT/SGPT 23 U/L (13-56); Albumin, Serum 3.6 g/dL (3.2-5.0); Alkaline Phosphatase 81 U/L (45-117); Anion Gap 7 (5-15); BUN 21 mg/dL (7-18); BUN/Creat Ratio 25.3 RATIO (10-20); Calcium,Total 9.2 mg/dL (8.5-10.1); Chloride 106 mmol/L (98-107); Creatinine, Serum 0.83 mg/dL (0.55-1.02); EST Glomerular Filtration Rate 71 mL/min (>60); Est Glom Filt Rate - Afr Amer 86 mL/min (>60); Globulin 3.9 g/dL (2.2-4.2); Glucose 82 mg/dL (74-106); Potassium 3.9 mmol/L (3.5-5.1); Protein, Total 7.5 g/dL (6.4-8.2); Sodium Level 141 mmol/L (136-145); Thyroid Stim Hormone (TSH) 0.15 uIU/mL (0.358-3.74)
== END ==
PROVIDERS: PCP Family Medicine; Referring Provider Internal Medicine Endocrinology, Diabetes & Metabolism; Visit Provider Internal Medicine Endocrinology, Diabetes & Metabolism
DX: E05.00 Thyrotoxicosis with diffuse goiter without thyrotoxic crisis or storm (principal); I10 Essential (primary) hypertension; E55.9 Vitamin D deficiency, unspecified
CPT/HCPCS: 36415; 80053; 82306; 84443

== ENCOUNTER → 2019-12-23 09:53 | Outpatient (CLI) | payer MEDICARE, OTHER, SELFPAY ==
[2019-12-23 13:06] LABS: Free T3 3.1 pg/mL (2.18-3.98); T4 Free Direct 1.32 ng/dL (0.76-1.46)
== END ==
PROVIDERS: PCP Family Medicine; Visit Provider Internal Medicine Endocrinology, Diabetes & Metabolism
DX: E05.00 Thyrotoxicosis with diffuse goiter without thyrotoxic crisis or storm (principal)
CPT/HCPCS: 36415; 84439; 84443; 84481

== ENCOUNTER 2020-02-02 13:30 | Outpatient (RCR) | payer MEDICARE, OTHER, SELFPAY ==
--- NOTE | 2019-12-28 14:59 | HP.PTEVAL ---
Patient's Visit Information KWAKU MCKEON is a 74 year old F referred to Physical Therapy by Dr. Damian Doherty MD with a diagnosis of Right knee OA. Date of Evaluation: 12/28/19 Physical Therapist: Sheree Stephens DPT - Visit Plan Frequency: 2x /Week Duration: 4 Weeks Plan: Aquatic: focus on strength/stabilization prior to right TKR - Subjective Patient reports that she was hoping her right knee was meniscus but Dr. Doherty says bone on bone with lots of spurs. She has had trouble with it for years- had a lot of pain when she had her hip replacement-right- 4 years ago- got better then she moved and it did her knee in. Prescribed an anti-inflammatory but is using a topical instead. Pain is located in the posterior knee- feels like its wratcheting in it. Sleep: distrurbed with throbbing. Worst: 5/10 Best: 0/10 Agg: stooping, stairs. Eases: activitity. No radiating pain- Has had N/T in her legs and feet for years- no changes. X-rays- yes but no MRI. No AD at this time- Does have a basement- crafting in the basement- getting up/down is challenged- non recip. PMHx: HTN, thyroid Meds: methamazole, amlodopine. Will plan to have TKR but needs to strengthen first. - Objective Posture: fair throughout. Gait: antalgic decreased stance on right LE with poor heel/toe pattern- decreased heel strike due to lack of extension of the knee. Stair: non recip 2 HR. Hr/TR: able without pain. SLS: 15 sec without LOB. Palpation: tender along posterior knee and medial joint line. ROM: 15-110 with pain at end ranges and reports tightness. Strength: Ankle: 5/5, knee: 4+/5 within available range, Hip: 4/5 throughout Core: fair. Flex: HS: severe, Gastroc:severe - Goals Goal 1:: Patient will be I with HEP and progression Goal Time Frame: 4-6 Weeks Goal 2:: patient will ambulate >300 feet with a normalized gait pattern Goal Time Frame: 4-6 Weeks Goal 3:: patient will asc/desc 8 stairs recip with 1 HR Goal Time Frame: 4-6 Weeks - Rehabilitation Potential Physical Therapy Diagnosis: patient presents with hypomobility- she has decreased ROM, strength, flex and muscular endurance leading to decreased ability to perform ADL's. Rehabilitation Potential: Good - Anticipated Interventions Patient/Client Instruction: Educate patient on: Benefits of Fitness Program Therapeutic Exercise to Include: Strength training, Endurance training, Balance training, Body mechanics, Postural training, Flexibilty training, Gait and locomotor training, In an aquatic setting, Dynamic Lumbar Stabilization For the Purpose of:: To improve muscle performance and motor function Thank you for the opportunity to evaluate your patient. For Medicare and Medicare HMO plans, please review the plan of care and approve it. It will need to be FAXED BACK to us at [phone] for Medicare purposes. For Medicare only, by signing this I certify the plan of care. Please let me know if there are questions or concerns regarding this plan of care. Physician Signature: Date:
--- NOTE | 2020-02-02 13:51 | HP.PTDCSUM_ITS ---
It has been my pleasure to treat KWAKU MCKEON referred by Dr. Damian Doherty MD, with the diagnosis of Right knee OA for a total of 10 visit(s). Discharge Date: Please see the following information for a summary of their discharge status. Subjective: Patient reports that water therapy went great- she no longer wakes up with pain. The last 2 days she has been able to take her brace off which she has not been able to do that in 2 years. She is planning to do Silver Sneakers. RLE Pain Intensity (Out of 10): 1 Lumbar spine Pain Intensity (Out of 10): 0 % Improvement: 80 Objective/Function: Posture: fair throughout. Gait: antalgic decreased stance on right LE with poor heel/toe pattern- decreased heel strike due to lack of extension of the knee. Stair: recip with 1 HR. Hr/TR: able without pain. SLS: 15 sec without LOB. Palpation: tender along posterior knee and medial joint line. ROM: 15-120 Strength: Ankle: 5/5, knee: 5/5 within available range, Hip: 4+/5 throughout Core: fair. Flex: HS: severe, Gastroc:severe Goal 1:: Patient will be I with HEP and progression Goal Progress: Goal Met Goal 2:: patient will ambulate >300 feet with a normalized gait pattern Goal Progress: Progressing Goal 3:: patient will asc/desc 8 stairs recip with 1 HR Goal Progress: Goal Met Plan: Discharge to [facility] If there are questions or concerns regarding this patient's physical therapy, please feel free to call me at [phone]. Thank you for the referral of this patient. Sincerely, Sheree Stephens DPT
== END 2020-02-02 13:59 | disposition home or self-care (01) ==
LOC: PT 13:30
PROVIDERS: PCP Family Medicine; Referring Provider Specialist; Visit Provider Specialist
DX: M17.11 Unilateral primary osteoarthritis, right knee (principal)
CPT/HCPCS: 97113; 97161; 97164

== ENCOUNTER → 2020-05-07 09:10 | Outpatient (CLI) | payer MEDICARE, OTHER, SELFPAY ==
[2020-05-07 10:27] LABS: Vitamin D,25 Hydroxy 45.6 ng/mL
[2020-05-07 10:32] LABS: ALB/GLOB Ratio 0.8 RATIO (0.9-2.4); AST(SGOT) 24 U/L (15-37); Alanine Aminotransfer ALT/SGPT 25 U/L (13-56); Albumin, Serum 3.4 g/dL (3.2-5.0); Alkaline Phosphatase 87 U/L (45-117); Anion Gap 6 (5-15); BUN 11 mg/dL (7-18); BUN/Creat Ratio 13.9 RATIO (10-20); Calcium,Total 9.1 mg/dL (8.5-10.1); Chloride 108 mmol/L (98-107); Creatinine, Serum 0.79 mg/dL (0.55-1.02); EST Glomerular Filtration Rate 75 mL/min (>60); Est Glom Filt Rate - Afr Amer 91 mL/min (>60); Free T3 2.8 pg/mL (2.18-3.98); Globulin 4.2 g/dL (2.2-4.2); Glucose 118 mg/dL (74-106); Magnesium 2.1 mg/dL (1.6-2.6); Potassium 3.9 mmol/L (3.5-5.1); Protein, Total 7.6 g/dL (6.4-8.2); Sodium Level 144 mmol/L (136-145); T4 Free Direct 1.24 ng/dL (0.76-1.46); Thyroid Stim Hormone (TSH) 0.13 uIU/mL (0.358-3.74)
== END ==
PROVIDERS: PCP Family Medicine; Visit Provider Internal Medicine Endocrinology, Diabetes & Metabolism
DX: E05.00 Thyrotoxicosis with diffuse goiter without thyrotoxic crisis or storm (principal); E55.9 Vitamin D deficiency, unspecified; E83.42 Hypomagnesemia
CPT/HCPCS: 36415; 80053; 82306; 83735; 84439; 84443; 84481

== ENCOUNTER → 2020-08-16 09:43 | Outpatient (CLI) | payer MEDICARE, OTHER, SELFPAY ==
[2020-08-16 12:58] LABS: Free T3 2.5 pg/mL (2.18-3.98); T4 Free Direct 1.23 ng/dL (0.76-1.46); Thyroid Stim Hormone (TSH) 0.59 uIU/mL (0.358-3.74)
== END ==
PROVIDERS: PCP Family Medicine; Referring Provider Family Medicine; Visit Provider Internal Medicine Endocrinology, Diabetes & Metabolism
DX: E05.00 Thyrotoxicosis with diffuse goiter without thyrotoxic crisis or storm (principal)
CPT/HCPCS: 36415; 84439; 84443; 84481

== ENCOUNTER → 2020-09-24 11:08 | Outpatient (CLI) | payer MEDICARE, OTHER, SELFPAY ==
[2020-09-24 11:54] LABS: Erythrocyte Sedimentation Rate 13 mm/hr (0-30)
[2020-09-24 11:56] LABS: Absolute Lymphocyte Count 2.07 X10^3/uL (0.83-4.51); Basophil# 0.02 X10^3/uL; Basophil% 0.3 % (0-1); Eosinophil# 0.19 X10^3/uL; Eosinophils% 2.8 % (0-5); Hematocrit 46.1 % (37-47); Hemoglobin 15.4 g/dL (12.0-15.0); Lymphocyte # 2.07 X10^3/ul (4.0); Lymphocyte % 30.4 % (19-41); Mean Corp Hgb Conc 33.4 g/dL (32-36); Mean Corpuscular Hgb 30.9 pg (27.0-32.0); Mean Corpuscular Volume 92.6 fL (81-99); Mean Platelet Vol. 9.4 fl (6.2-12.0); Monocyte# 0.51 X10^3/uL; Monocyte% 7.5 % (0-10); NRBC Flagged by Analyzer 0 % (0-5); Neutrophil % 58.7 % (47-70); Platelet Count 284 K/mm3 (150-450); RBC Distribution Width CV 12.5 % (11.6-14.6); RBC Distribution Width SD 42.3 fl (35.1-43.9); Red Blood Count 4.98 M/mm3 (4.2-5.4); White Blood Count 6.8 K/mm3 (4.4-11.0)
[2020-09-24 12:20] LABS: CRP < 2.90 mg/L (0.0-3.0)
== END ==
PROVIDERS: PCP Family Medicine; Referring Provider Specialist; Visit Provider Specialist
DX: Z96.651 Presence of right artificial knee joint (principal)
CPT/HCPCS: 36415; 85025; 85652; 86140

== ENCOUNTER → 2021-01-11 09:56 | Outpatient (CLI) | payer MEDICARE, OTHER, SELFPAY ==
[2020-10-03 13:05] VITALS: BMI 35.5
[2021-01-11 12:30] LABS: Absolute Lymphocyte Count 1.75 X10^3/uL (0.83-4.51); Absolute Neutrophil Count 3.2 X10^3/uL (2.0-7.7); Basophil# 0.03 X10^3/uL; Basophil% 0.5 % (0-1); Eosinophil# 0.21 X10^3/uL; Eosinophils% 3.7 % (0-5); Hematocrit 42.7 % (37-47); Lymphocyte # 1.75 X10^3/ul (0.83-4.51); Mean Corp Hgb Conc 32.8 g/dL (32-36); Mean Corpuscular Hgb 31.3 pg (27.0-32.0); Mean Corpuscular Volume 95.5 fL (81-99); Mean Platelet Vol. 10.2 fl (6.2-12.0); Monocyte# 0.48 X10^3/uL; Monocyte% 8.5 % (0-10); NRBC Flagged by Analyzer 0 % (0-5); Neutrophil # 3.17 X10^3/uL (2.7-7.7); Neutrophil % 56.1 % (47-70); Platelet Count 257 K/mm3 (150-450); RBC Distribution Width SD 42.1 fl (35.1-43.9); Red Blood Count 4.47 M/mm3 (4.2-5.4); White Blood Count 5.7 K/mm3 (4.4-11.0)
[2021-01-11 12:43] LABS: Vitamin D,25 Hydroxy 55.8 ng/mL
[2021-01-11 12:44] LABS: Free T3 2.7 pg/mL (2.18-3.98); T4 Free Direct 1.12 ng/dL (0.76-1.46)
[2021-01-11 12:54] LABS: Microalbumin,Random Urine 7.6 mg/L (NO RANGE EST.)
[2021-01-11 13:30] LABS: Cholesterol 203 mg/dL (200); High Density Lipoprotein 51 mg/dL; Thyroid Stim Hormone (TSH) 0.79 uIU/mL (0.358-3.74); Triglycerides 185 mg/dL; Very Low Density Lipoprotein 37 mg/dL (5-40)
== END ==
PROVIDERS: Internal Medicine Endocrinology, Diabetes & Metabolism; PCP Family Medicine; Visit Provider Family Medicine
DX: E05.90 Thyrotoxicosis, unspecified without thyrotoxic crisis or storm (principal); E55.9 Vitamin D deficiency, unspecified; I10 Essential (primary) hypertension
CPT/HCPCS: 80061; 82043; 82306; 82570; 84439; 84443; 84481; 85025

== ENCOUNTER → 2021-02-15 | Outpatient (CLI) | payer MEDICARE, OTHER, SELFPAY ==
[2020-10-03 13:05] VITALS: BMI 35.5
[2021-02-15 21:44] LABS: Probe Check PASS; Specimen Processing Control PASS
== END | disposition home or self-care (01) ==
LOC: LABSPEC 19:36
PROVIDERS: PCP Family Medicine; Visit Provider Family Medicine
DX: Z20.822 Contact with and (suspected) exposure to COVID-19 (principal)
CPT/HCPCS: 87635; U0005; U0003

== ENCOUNTER → 2021-04-30 11:50 | Outpatient (CLI) | payer MEDICARE, OTHER, SELFPAY ==
[2021-04-30 17:08] LABS: D-Dimer Quantitative (DVT/PE) 0.85 FEU/ug/m (0.27-0.49)
== END ==
PROVIDERS: PCP Family Medicine; Referring Provider Family Medicine; Visit Provider Family Medicine
DX: M79.662 Pain in left lower leg (principal)
CPT/HCPCS: 36415; 85379

== ENCOUNTER → 2021-05-01 10:59 | Outpatient (CLI) | payer MEDICARE, OTHER, SELFPAY ==
--- NOTE | 2021-05-01 11:19 | VDLE_ITS ---
Reason For Study: Pain RIGHT LEFT CFV is compressible, spontaneous, phasic, GSV is normal. competent and demonstrates normal CFV is compressible, spontaneous, phasic, augmentation. competent, and demonstrates normal Procedure augmentation. This is a venous duplex using B-mode, color FV is compressible, spontaneous, phasic, flow and spectral Doppler. competent and demonstrates normal Exam performed in department. augmentation. A preliminary report was called and/or faxed POP V is compressible, spontaneous, phasic, to [place]. competent and demonstrates normal augmentation. T/P Trunk is compressible. PTV is compressible. LT PerV is compressible. VL/Venous Duplex US, Unilateral Interpretation Summary Deep veins of the left lower extremity are patent and compressible segmentally. There is no evidence of left lower extremity deep vein thrombosis. Valvular competence appears intac t within the proximal deep venous system on the left . The left great saphenous vein appears patent a nd compressible segmentally. Ordering Physician: Alex Newell Referring Physician: Alex Newell Performed By: Jessica Chandler RVT
== END ==
PROVIDERS: PCP Family Medicine; Referring Provider Family Medicine; Visit Provider Family Medicine
DX: M79.662 Pain in left lower leg (principal)
CPT/HCPCS: 93971

== ENCOUNTER 2021-09-24 12:40 | Outpatient (CLI) | payer MEDICARE, OTHER, SELFPAY ==
--- NOTE | 2021-09-24 12:46 | RAD_ITS ---
STUDY: CHEST SERIES (2 VIEWS) OF 1248 HOURS ON 09/24/2021 REASON FOR EXAM: 76-year-old female with chest pain. TECHNIQUE: A standard 2 view chest x-ray series was performed per protocol. COMPARISON: None. FINDINGS: Mild demineralization. Moderate thoracic dextroscoliosis. Moderate osteophytic degenerative changes of the mid thoracic spine. Moderate cardiomegaly with borderline heart failure. No confluent infiltrates, atelectasis, effusion, or pulmonary mass lesions. No hyperinflation. RAD/Chest PA and Lateral IMPRESSION: 1. Moderate cardiomegaly with borderline heart failure. 2. No other evidence of active cardiopulmonary disease. 3. Mild demineralization, moderate thoracic dextroscoliosis, and moderate osteophytic degenerative changes of the midthoracic spine. Electronically Signed: Chance Rodrigues MD at 18:06 EDT ,
== END 2021-09-24 23:59 | disposition home or self-care (01) ==
LOC: MTRAD 12:43 → LABSPEC 15:20
PROVIDERS: PCP Family Medicine; Referring Provider Family Medicine; Visit Provider Family Medicine
DX: R07.89 Other chest pain (principal); Z20.822 Contact with and (suspected) exposure to COVID-19
CPT/HCPCS: 71046; 87635; U0003; U0005

== ENCOUNTER 2021-10-03 14:02 | Outpatient (CLI) | payer MEDICARE, OTHER, SELFPAY ==
[2021-10-03 15:41] LABS: Free T3 2.5 pg/mL (2.18-3.98); T4 Free Direct 1.17 ng/dL (0.76-1.46)
[2021-10-03 15:41] LABS: Vitamin D,25 Hydroxy 65.5 ng/mL
[2021-10-03 16:01] LABS: AST(SGOT) 27 U/L (15-37); Alanine Aminotransfer ALT/SGPT 29 U/L (13-56); Albumin, Serum 3.6 g/dL (3.2-5.0); Alkaline Phosphatase 95 U/L (45-117); Anion Gap 6 (5-15); BUN 12 mg/dL (7-18); BUN/Creat Ratio 16.9 RATIO (10-20); Calcium,Total 9.3 mg/dL (8.5-10.1); Chloride 107 mmol/L (98-107); Cholesterol 192 mg/dL (200); Creatinine, Serum 0.71 mg/dL (0.55-1.02); EST Glomerular Filtration Rate 85 mL/min (>60); Est Glom Filt Rate - Afr Amer 102 mL/min (>60); Globulin 3.6 g/dL (2.2-4.2); Glucose 177 mg/dL (74-106); High Density Lipoprotein 46 mg/dL; Potassium 4.1 mmol/L (3.5-5.1); Protein, Total 7.2 g/dL (6.4-8.2); Sodium Level 141 mmol/L (136-145); Thyroid Stim Hormone (TSH) 0.79 uIU/mL (0.358-3.74); Triglycerides 201 mg/dL; Very Low Density Lipoprotein 40 mg/dL (5-40)
[2021-10-03 17:14] LABS: Microalbumin,Random Urine 18.7 mg/L (NO RANGE EST.)
== END 2021-10-03 23:59 | disposition home or self-care (01) ==
LOC: BIMLAB 14:02
PROVIDERS: PCP Family Medicine; Referring Provider Internal Medicine Endocrinology, Diabetes & Metabolism; Visit Provider Internal Medicine Endocrinology, Diabetes & Metabolism
DX: I10 Essential (primary) hypertension (principal); E05.00 Thyrotoxicosis with diffuse goiter without thyrotoxic crisis or storm; E55.9 Vitamin D deficiency, unspecified
CPT/HCPCS: 36415; 80053; 80061; 82043; 82306; 82570; 84439; 84443; 84481

== ENCOUNTER → 2021-11-12 | Outpatient (CLI) | payer MEDICARE, OTHER, SELFPAY ==
--- NOTE | 2021-11-12 16:56 | CT_ITS ---
STUDY: CT RIGHT SHOULDER REASON FOR EXAM: Right glenohumeral osteoarthritis, surgical planning. TECHNIQUE: The patient was scanned in a multi detector CT scanner. High resolution transaxial imaging was performed without the administration of intravenous contrast material. Sagittal and coronal images were reconstructed. Individualized dose optimization techniques were used for this CT. COMPARISON: None. FINDINGS: There is advanced glenohumeral arthrosis with marginal osteophytes of the humeral head, joint space narrowing and prominent subchondral cystic change of the glenoid and humeral head (coronal reconstructions 43-50). There is pressure erosion of the posterior glenoid (axial images 33, 34). Normal coracoid process. Normal visualized lateral clavicle. There is acromioclavicular arthrosis with an undersurface osteophyte of the distal clavicle (coronal reconstruction 40). There is a Type II morphology (curved), with a neutral orientation. Normal visualized muscles. There is an axillary lymph node with central fat replacement (sagittal reconstruction 44). CT/Extremity Upper without Contra IMPRESSION: Glenohumeral arthrosis. Acromioclavicular arthrosis. Electronically Signed: Joey Nichols MD at 14:58 EDT ,
== END | disposition home or self-care (01) ==
LOC: CT 16:53
PROVIDERS: PCP Family Medicine; Visit Provider Specialist
DX: M19.011 Primary osteoarthritis, right shoulder (principal)
CPT/HCPCS: 73200

== ENCOUNTER → 2022-04-03 | Outpatient (CLI) | payer MEDICARE, OTHER, SELFPAY ==
[2022-04-03 13:12] LABS: Free T3 2.5 pg/mL (2.18-3.98); T4 Free Direct 1.18 ng/dL (0.76-1.46); Thyroid Stim Hormone (TSH) 1.09 uIU/mL (0.358-3.74)
== END | disposition home or self-care (01) ==
LOC: MFPLAB 11:19
PROVIDERS: PCP Family Medicine; Referring Provider Family Medicine; Visit Provider Internal Medicine Endocrinology, Diabetes & Metabolism
DX: E05.00 Thyrotoxicosis with diffuse goiter without thyrotoxic crisis or storm (principal); I10 Essential (primary) hypertension
CPT/HCPCS: 36415; 84439; 84443; 84481

== ENCOUNTER → 2022-04-21 | Outpatient (CLI) | payer MEDICARE, OTHER, SELFPAY ==
--- NOTE | 2022-04-21 16:42 | RAD_ITS ---
STUDY: X-RAY - LUMBAR SPINE REASON FOR EXAM: Female, 76 years old. STRAIN OF PELVIS TECHNIQUE: 2 view(s) of the lumbar spine were obtained. COMPARISON: None FINDINGS: Normal lumbar lordosis. There is no substantial scoliosis. There is slight anterolisthesis of L4 on L5. There is mild multilevel endplate spondylosis of the lumbar vertebrae. There is multi-level degenerative disc disease with multi-level disc space narrowing. There is a partially visualized right hip arthroplasty. There is facet arthropathy L4-L5 L5-S1. There is atherosclerotic calcification of the abdominal aorta without a demonstrated aneurysm. RAD/Lumbar Spine 2 or 3 Views IMPRESSION: Degenerative changes of the spine, as detailed above. Electronically Signed: Brenda Boucher MD at 6:15 EDT ,
[2022-04-21 18:01] LABS: Absolute Lymphocyte Count 1.89 X10^3/uL (0.83-4.51); Absolute Neutrophil Count 4.9 X10^3/uL (2.0-7.7); Basophil# 0.04 X10^3/uL; Basophil% 0.5 % (0-1); Eosinophil# 0.22 X10^3/uL; Eosinophils% 2.9 % (0-5); Hemoglobin 13.9 g/dL (12.0-15.0); Lymphocyte # 1.89 X10^3/ul (0.83-4.51); Lymphocyte % 24.7 % (19-41); Mean Corp Hgb Conc 33.9 g/dL (32-36); Mean Corpuscular Hgb 31.6 pg (27.0-32.0); Mean Corpuscular Volume 93.2 fL (81-99); Mean Platelet Vol. 9.8 fl (6.2-12.0); Monocyte# 0.56 X10^3/uL; Monocyte% 7.3 % (0-10); NRBC Flagged by Analyzer 0 % (0-5); Neutrophil # 4.94 X10^3/uL (2.7-7.7); Neutrophil % 64.5 % (47-70); Platelet Count 262 K/mm3 (150-450); RBC Distribution Width CV 12.6 % (11.6-14.6); RBC Distribution Width SD 43.1 fl (35.1-43.9); White Blood Count 7.7 K/mm3 (4.4-11.0)
[2022-04-21 18:30] LABS: Erythrocyte Sedimentation Rate 27 mm/hr (0-30)
[2022-04-21 18:58] LABS: ALB/GLOB Ratio 0.8 RATIO (0.9-2.4); AST(SGOT) 26 U/L (15-37); Alanine Aminotransfer ALT/SGPT 35 U/L (13-56); Albumin, Serum 3.7 g/dL (3.2-5.0); Alkaline Phosphatase 87 U/L (45-117); Anion Gap 5 (5-15); BUN 21 mg/dL (7-18); BUN/Creat Ratio 30.7 RATIO (10-20); CRP < 2.90 mg/L (0.0-3.0); Calcium,Total 9.6 mg/dL (8.5-10.1); Chloride 107 mmol/L (98-107); Creatinine, Serum 0.68 mg/dL (0.55-1.02); EST Glomerular Filtration Rate 88 mL/min (>60); Est Glom Filt Rate - Afr Amer 107 mL/min (>60); Globulin 4.4 g/dL (2.2-4.2); Glucose 98 mg/dL (74-106); Potassium 3.9 mmol/L (3.5-5.1); Protein, Total 8.1 g/dL (6.4-8.2); Sodium Level 140 mmol/L (136-145); Uric Acid 4.3 mg/dL (2.6-6.0)
== END | disposition home or self-care (01) ==
LOC: MTLAB 16:41
PROVIDERS: PCP Family Medicine; Referring Provider Family Medicine; Visit Provider Family Medicine
DX: S39.013A Strain of muscle, fascia and tendon of pelvis, initial encounter (principal); X58.XXXA Exposure to other specified factors, initial encounter
CPT/HCPCS: 36415; 72100; 80053; 84550; 85025; 85652; 86140

== ENCOUNTER → 2022-05-09 | Outpatient (CLI) | payer MEDICARE, OTHER, SELFPAY ==
--- NOTE | 2022-05-09 14:03 | ECHOD_ITS ---
Reason For Study: murmur Procedure This was a 2D Doppler, Color Flow transthoracic echocardiogram. Exam performed in department. Left Ventricle Normal LV size. Left ventricular systolic function is normal. Stage 1 diastolic dysfunction. The estimated ejection fraction is 60 %. No regional wall motion abnormalities noted. Right Ventricle Normal RV size. Normal systolic function. Atria Normal left atrium. Normal right atrium. Mitral Valve There is mild mitral annular calcification. Tricuspid Valve Normal tricuspid valve. Aortic Valve Trisinus/trileaflet aortic valve. Peak aortic valve gradient 11 mmHg. Mean aortic valve gradient 5 mmHg. Pulmonic Valve Normal pulmonic valve. Great Vessels Normal aortic root. The pulmonary artery is normal size. Normal inferior vena cava. Pericardium/Pleural No pericardial effusion. MMode/2D Measurements & Calculations LVIDd: 4.6 cm IVSd: 1.2 cm Ao root diam: 3.1 cm LVIDs: 3.3 cm LVPWd: 0.71 cm RVDd: 3.4 cm FS: 29.5 % LAV(MOD-bp): 75.0 ml LVAd ap4: 28.1 cm2 SV(MOD-sp4): 54.6 ml LAV(MOD-bp) Indexed: 38.8 ml/m2 LVLd ap4: 8.3 cm LAV(MOD-sp2): 72.6 ml EDV(MOD-sp4): 78.6 ml LAV(MOD-sp4): 71.2 ml EDV(sp4-el): 81.0 ml LVAs ap4: 13.7 cm2 LVLs ap4: 7.1 cm ESV(MOD-sp4): 24.0 ml ESV(sp4-el): 22.4 ml EF(MOD-sp4): 69.4 % EF(sp4-el): 72.4 % SV(sp4-el): 58.7 ml LA A4 area: 23.8 cm2 LA dimension(2D): 3.3 cm RA A4 area: 15.4 cm2 Time Measurements MV dec time: 0.14 sec Doppler Measurements & Calculations MV E max sylvain: 75.8 cm/sec Lat Peak E' Sylvain: 8.4 cm/sec Med Peak E' Sylvain: 7.2 cm/sec MV A max sylvain: 76.3 cm/sec E/E' lat: 9.0 E/E' med: 10.6 MV E/A: 0.99 MV V2 max: 90.4 cm/sec Ao V2 max: 167.5 cm/sec MV max P.3 mmHg MV dec slope: 580.5 cm/sec2 Ao max P.2 mmHg MV V2 mean: 52.2 cm/sec Ao V2 mean: 105.2 cm/sec MV mean P.3 mmHg Ao mean P.3 mmHg MV V2 VTI: 35.2 cm Ao V2 VTI: 41.1 cm LV V1 max: 124.8 cm/sec PA V2 max: 112.2 cm/sec LV V1 max P.2 mmHg PA V2 mean: 70.4 cm/sec ECHO/Echo Complete Interpretation Summary Normal LV size. Left ventricular systolic function is normal. Stage 1 diastolic dysfunction. There is mild mitral annular calcification. Ordering Physician: Alex Newell Referring Physician: Alex Newell Performed By: India Gonzalez RCS
== END | disposition home or self-care (01) ==
LOC: CVS 14:01
PROVIDERS: PCP Family Medicine; Referring Provider Family Medicine; Visit Provider Family Medicine
DX: R01.1 Cardiac murmur, unspecified (principal)
CPT/HCPCS: 93306

== ENCOUNTER → 2022-07-03 | Outpatient (CLI) | payer MEDICARE, OTHER, SELFPAY ==
--- NOTE | 2022-07-03 12:13 | BI_ITS ---
MAMMOGRAPHY - BILATERAL SCREENING REASON FOR EXAM: Female, 76 years old. Routine annual screening examination. PERTINENT HISTORY: Non-contributory. TECHNIQUE: Digital bilateral breast ewa (3D mammographic acquisition) in the CC and MLO projections. 2-D mediolateral oblique (MLO) and craniocaudad (CC) views of both breasts were obtained. CAD: Full Field Digital Mammography with Computer Added Detection was performed. COMPARISON: 12/19/2017 FINDINGS: Breast Composition: There are scattered areas of fibroglandular density. There are no dominant masses or suspicious calcifications. No other significant abnormalities are identified. There has been no significant change since the prior study. BI/SCRN MAMM (CAD)W/EWA BILAT IMPRESSION: Stable bilateral screening mammogram. Yearly follow-up mammogram recommended. (A) ASSESSMENT CATEGORY: BIRADS Category 1: Negative. A letter regarding these results will be sent to the patient by the facility within 30 days. Approximately 10% of breast cancers are not detected by mammography. A normal mammogram should not delay biopsy of a clinically suspicious abnormality. Electronically Signed: Hernandez Yen, at 8:15 EST ,
--- NOTE | 2022-07-03 12:20 | BD_ITS ---
STUDY: DUAL ENERGY X-RAY ABSORPTIOMETRY / DXA REASON FOR EXAM: Female, 76 years old. [id number] TECHNIQUE: Bone Mineral Density (BMD) measurements of lumbar spine and left hip were obtained. COMPARISON: None. FINDINGS: Lumbar Spine (L1-L4): g/cm2 (1.308) / T-score (2.4) / Z-score (5.0) Findings are suggestive of normal bone density with a low fracture risk. Left Femur Total: g/cm2 (0.952) / T-score (0.1) / Z-score (2.1) Left Femoral Neck: g/cm2 (0.756) / T-score (-0.8) / Z-score (1.4) BD/Dexa Bone Density Study IMPRESSION: The patient is considered normal as outlined below according to World Gomez Organization (WHO) criteria with a low fracture risk. Reference Information: The T-score is the number of standard deviations above or below the standard which is normal for young adults at their peak bone mineral density. The World Health Organization (WHO) interprets the T-scores as follows: Above -1 Normal bone density Between -1 and -2.5 Osteopenia Equal to / or below -2.5 Osteoporosis As a practical clinical guideline, osteopenia may be graded as follows: Mild -1 through -1.5 Moderate -1.6 through -2.0 Severe -2.1 through -2.4 The Z-score is the number of standard deviations above or below age-matched controls. A Z-score of less than -1.5 would be considered abnormal. References: 1. NIH Osteoporosis and Related Bone Diseases www osteo.org 2. International Society for Clinical Densitometry www iscd.org 3. National Osteoporosis Foundation www nof.org Electronically Signed: Casey Ríos MD at 10:32 EST ,
== END | disposition home or self-care (01) ==
LOC: OPBD 12:12
PROVIDERS: PCP Family Medicine; Visit Provider Family Medicine
DX: Z12.31 Encounter for screening mammogram for malignant neoplasm of breast (principal); Z78.0 Asymptomatic menopausal state
CPT/HCPCS: 77063; 77067; 77080

== ENCOUNTER → 2022-10-20 | Outpatient (CLI) | payer MEDICARE, OTHER, SELFPAY ==
[2022-10-20 17:35] LABS: Free T3 2.3 pg/mL (2.18-3.98); T4 Free Direct 1.21 ng/dL (0.76-1.46); Thyroid Stim Hormone (TSH) 0.92 uIU/mL (0.358-3.74)
[2022-10-20 17:47] LABS: Hemoglobin A1c 5.5 % (3.8-5.6)
== END | disposition home or self-care (01) ==
LOC: MFPLAB 11:30
PROVIDERS: PCP Family Medicine; Visit Provider Internal Medicine Endocrinology, Diabetes & Metabolism
DX: E05.00 Thyrotoxicosis with diffuse goiter without thyrotoxic crisis or storm (principal); R73.9 Hyperglycemia, unspecified; I10 Essential (primary) hypertension
CPT/HCPCS: 36415; 83036; 84439; 84443; 84481

== ENCOUNTER → 2022-12-18 | Outpatient (CLI) | payer MEDICARE, OTHER, SELFPAY ==
[2022-12-18 11:34] LABS: ALB/GLOB Ratio 0.9 RATIO (0.9-2.4); AST(SGOT) 24 U/L (15-37); Alanine Aminotransfer ALT/SGPT 25 U/L (13-56); Albumin, Serum 3.4 g/dL (3.2-5.0); Alkaline Phosphatase 85 U/L (45-117); Anion Gap 5 (5-15); BUN 16 mg/dL (7-18); BUN/Creat Ratio 23.9 RATIO (10-20); Calcium,Total 9.4 mg/dL (8.5-10.1); Chloride 108 mmol/L (98-107); Creatinine, Serum 0.67 mg/dL (0.55-1.02); EST Glomerular Filtration Rate 90 mL/min (>60); Est Glom Filt Rate - Afr Amer 109 mL/min (>60); Globulin 3.9 g/dL (2.2-4.2); Glucose 101 mg/dL (74-106); Potassium 4.2 mmol/L (3.5-5.1); Protein, Total 7.3 g/dL (6.4-8.2); Sodium Level 141 mmol/L (136-145)
[2022-12-18 14:21] LABS: Microalbumin,Random Urine 33.7 mg/L (NO RANGE EST.); Microalbumin:Creatinine Ratio 80.8 mg/g CRE (<30 mg/g CRE)
== END | disposition home or self-care (01) ==
LOC: MFPLAB 08:29
PROVIDERS: PCP Family Medicine; Visit Provider Family Medicine
DX: I10 Essential (primary) hypertension (principal)
CPT/HCPCS: 36415; 80053; 82043; 82570

== ENCOUNTER → 2023-03-27 | Outpatient (CLI) | payer MEDICARE, OTHER, SELFPAY ==
[2023-03-27 18:19] LABS: Free T3 2.3 pg/mL (2.18-3.98); T4 Free Direct 1.06 ng/dL (0.76-1.46); Thyroid Stim Hormone (TSH) 0.96 uIU/mL (0.358-3.74)
== END | disposition home or self-care (01) ==
LOC: MFPLAB 14:33
PROVIDERS: PCP Family Medicine; Visit Provider Nurse Practitioner Family
DX: E05.00 Thyrotoxicosis with diffuse goiter without thyrotoxic crisis or storm (principal)
CPT/HCPCS: 36415; 84439; 84443; 84481

== ENCOUNTER → 2024-02-02 | Outpatient (CLI) | payer MEDICARE, OTHER, SELFPAY ==
[2024-02-02 15:41] LABS: ALB/GLOB Ratio 0.8 RATIO (0.9-2.4); AST(SGOT) 27 U/L (15-37); Alanine Aminotransfer ALT/SGPT 28 U/L (13-56); Albumin, Serum 3.5 g/dL (3.2-5.0); Alkaline Phosphatase 73 U/L (45-117); Anion Gap 3 (5-15); BUN 18 mg/dL (7-18); BUN/Creat Ratio 23.6 RATIO (10-20); Calcium,Total 9.5 mg/dL (8.5-10.1); Chloride 107 mmol/L (98-107); Creatinine, Serum 0.76 mg/dL (0.55-1.02); EST Glomerular Filtration Rate 77 mL/min (>60); Est Glom Filt Rate - Afr Amer 94 mL/min (>60); Globulin 4.3 g/dL (2.2-4.2); Glucose 90 mg/dL (74-106); Protein, Total 7.8 g/dL (6.4-8.2); Sodium Level 138 mmol/L (136-145); T4 Free Direct 1.14 ng/dL (0.76-1.46); Thyroid Stim Hormone (TSH) 1.51 uIU/mL (0.358-3.74)
[2024-02-02 15:55] LABS: Microalbumin,Random Urine 6.6 mg/L (NO RANGE EST.); Microalbumin:Creatinine Ratio 15.6 mg/g CRE (<30 mg/g CRE)
== END | disposition home or self-care (01) ==
LOC: MFPLAB 11:55
PROVIDERS: PCP Family Medicine; Visit Provider Family Medicine
DX: I10 Essential (primary) hypertension (principal); E05.90 Thyrotoxicosis, unspecified without thyrotoxic crisis or storm
CPT/HCPCS: 36415; 80053; 82043; 82570; 84439; 84443

== ENCOUNTER → 2024-05-13 | Outpatient (CLI) | payer MEDICARE, OTHER, SELFPAY | END | disposition home or self-care (01) | LOC: OPBI 10:56 | PROVIDERS: PCP Family Medicine; Referring Provider Family Medicine; Visit Provider Family Medicine | DX: Z12.31 Encounter for screening mammogram for malignant neoplasm of breast (principal) | CPT/HCPCS: 77063; 77067 ==

== ENCOUNTER → 2024-05-20 | Outpatient (CLI) | payer MEDICARE, OTHER, SELFPAY ==
[2024-05-20 15:24] LABS: Absolute Lymphocyte Count 1.76 X10^3/uL (0.83-4.51); Absolute Neutrophil Count 5.5 X10^3/uL (2.0-7.7); Basophil# 0.04 X10^3/uL; Basophil% 0.5 % (0-1); Eosinophils% 2.5 % (0-5); Hematocrit 40.8 % (37-47); Hemoglobin 13.7 g/dL (12.0-15.0); Lymphocyte # 1.76 X10^3/ul (0.83-4.51); Mean Corp Hgb Conc 33.6 g/dL (32-36); Mean Corpuscular Hgb 32.2 pg (27.0-32.0); Mean Platelet Vol. 9.6 fl (6.2-12.0); Monocyte# 0.49 X10^3/uL; Monocyte% 6.1 % (0-10); NRBC Flagged by Analyzer 0 % (0-5); Neutrophil # 5.49 X10^3/uL (2.7-7.7); Neutrophil % 68.8 % (47-70); Platelet Count 279 K/mm3 (150-450); RBC Distribution Width SD 41.9 fl (35.1-43.9); Red Blood Count 4.25 M/mm3 (4.2-5.4)
[2024-05-20 15:48] LABS: Anion Gap 3 (5-15); BUN 21 mg/dL (7-18); BUN/Creat Ratio 26.4 RATIO (10-20); Calcium,Total 10.1 mg/dL (8.5-10.1); Chloride 106 mmol/L (98-107); EST Glomerular Filtration Rate 74 mL/min (>60); Est Glom Filt Rate - Afr Amer 89 mL/min (>60); Glucose 107 mg/dL (74-106); Sodium Level 138 mmol/L (136-145)
== END | disposition home or self-care (01) ==
PROVIDERS: Registered Nurse; PCP Family Medicine
DX: R60.0 Localized edema (principal)
CPT/HCPCS: 36415; 80048; 85025

== ENCOUNTER → 2024-11-03 | Outpatient (CLI) | payer MEDICARE, OTHER, SELFPAY ==
[2024-11-03 18:18] LABS: Absolute Lymphocyte Count 2.07 X10^3/uL (0.83-4.51); Absolute Neutrophil Count 3.6 X10^3/uL (2.0-7.7); Basophil# 0.04 X10^3/uL; Basophil% 0.6 % (0-1); Eosinophil# 0.37 X10^3/uL; Eosinophils% 5.6 % (0-5); Hematocrit 41.2 % (37-47); Hemoglobin 14.3 g/dL (12.0-15.0); Lymphocyte # 2.07 X10^3/ul (0.83-4.51); Lymphocyte % 31.5 % (19-41); Mean Corp Hgb Conc 34.7 g/dL (32-36); Mean Corpuscular Hgb 31.4 pg (27.0-32.0); Mean Corpuscular Volume 90.5 fL (81-99); Mean Platelet Vol. 9.9 fl (6.2-12.0); Monocyte# 0.51 X10^3/uL; Monocyte% 7.8 % (0-10); NRBC Flagged by Analyzer 0 % (0-5); Neutrophil # 3.57 X10^3/uL (2.7-7.7); Neutrophil % 54.2 % (47-70); Platelet Count 289 K/mm3 (150-450); RBC Distribution Width CV 12.6 % (11.6-14.6); RBC Distribution Width SD 41.6 fl (35.1-43.9); Red Blood Count 4.55 M/mm3 (4.2-5.4); White Blood Count 6.6 K/mm3 (4.4-11.0)
[2024-11-03 18:48] LABS: ALB/GLOB Ratio 1.2 RATIO (0.9-2.4); AST(SGOT) 29 U/L (<=31); Alanine Aminotransfer ALT/SGPT 20 U/L (<=34); Albumin, Serum 4.3 g/dL (3.4-4.8); Alkaline Phosphatase 75 U/L (35-104); Anion Gap 10 (5-15); BUN 15 mg/dL (4-19); BUN/Creat Ratio 23.8 RATIO (10-20); Calcium,Total 10.5 mg/dL (7.6-11.0); Carbon Dioxide 25.4 mmol/L (21.0-32.0); Chloride 104 mmol/L (98-108); Creatinine, Serum 0.64 mg/dL (0.70-1.20); EST Glomerular Filtration Rate 89 (>60); Globulin 3.5 g/dL (2.2-4.2); Glucose 94 mg/dL (70-99); Potassium 3.7 mmol/L (3.3-5.1); Protein, Total 7.8 g/dL (5.9-8.4); Sodium Level 139 mmol/L (133-145); Total Bilirubin 0.57 mg/dL (0.00-1.30)
== END | disposition home or self-care (01) ==
LOC: MFPLAB 15:56
PROVIDERS: PCP Family Medicine; Referring Provider Family Medicine; Visit Provider Family Medicine
DX: I10 Essential (primary) hypertension (principal)
CPT/HCPCS: 36415; 80053; 85025

== ENCOUNTER → 2024-11-04 | Outpatient (CLI) | payer MEDICARE, OTHER, SELFPAY ==
[2024-11-04 13:54] LABS: Microalbumin,Random Urine < 12.0 mg/L (NO RANGE EST.)
== END | disposition home or self-care (01) ==
LOC: LABSPEC 10:14
PROVIDERS: PCP Family Medicine; Referring Provider Family Medicine; Visit Provider Family Medicine
DX: I10 Essential (primary) hypertension (principal)
CPT/HCPCS: 82043

== ENCOUNTER → 2025-04-12 | Outpatient (CLI) | payer MEDICARE, OTHER, SELFPAY ==
[2025-04-12 12:42] LABS: Hematocrit 39.7 % (37-47); Hemoglobin 14.2 g/dL (12.0-15.0); Immature Granulocytes Count 0.020 X10^3/uL (0.0-0.0); Mean Corp Hgb Conc 35.8 g/dL (32-36); Mean Corpuscular Volume 91.5 fL (81-99); Mean Platelet Vol. 9.7 fl (6.2-12.0); NRBC Flagged by Analyzer 0 % (0-5); Platelet Count 284 K/mm3 (150-450); RBC Distribution Width CV 11.9 % (11.6-14.6); RBC Distribution Width SD 40.2 fl (35.1-43.9); Red Blood Count 4.34 M/mm3 (4.2-5.4); White Blood Count 6.1 K/mm3 (4.4-11.0)
[2025-04-12 13:30] LABS: AST(SGOT) 32 U/L (<=31); Alanine Aminotransfer ALT/SGPT 19 U/L (<=34); Albumin, Serum 4.2 g/dL (3.4-4.8); Alkaline Phosphatase 65 U/L (35-104); Anion Gap 13 (5-15); BUN 12 mg/dL (4-19); BUN/Creat Ratio 15.8 RATIO (10-20); Calcium,Total 9.9 mg/dL (7.6-11.0); Carbon Dioxide 23.4 mmol/L (21.0-32.0); Chloride 103 mmol/L (98-108); Globulin 3.4 g/dL (2.2-4.2); Glucose 96 mg/dL (70-99); Potassium 3.7 mmol/L (3.3-5.1)
== END | disposition home or self-care (01) ==
LOC: LAB 09:38
PROVIDERS: PCP Family Medicine; Referring Provider Family Medicine; Visit Provider Family Medicine
DX: E05.90 Thyrotoxicosis, unspecified without thyrotoxic crisis or storm (principal)
CPT/HCPCS: 36415; 80053; 84439; 84443; 85025

== ENCOUNTER → 2025-05-04 | Outpatient (CLI) | payer MEDICARE, OTHER, SELFPAY ==
--- NOTE | 2025-05-04 12:50 | ECHOD_ITS ---
Reason For Study ECHO/Echo Complete
== END | disposition home or self-care (01) ==
LOC: CVS 12:46
PROVIDERS: PCP Family Medicine; Referring Provider Internal Medicine Cardiovascular Disease; Visit Provider Internal Medicine Cardiovascular Disease
DX: I47.19 Other supraventricular tachycardia (principal)
CPT/HCPCS: 93306

== ENCOUNTER → 2025-05-23 | Outpatient (CLI) | payer MEDICARE, OTHER, SELFPAY ==
--- NOTE | 2025-05-23 16:50 | BI_ITS ---
EXAM: SCRN MAMM (CAD)W/EWA BILAT DATE: 05/23/2025 CLINICAL HISTORY: F, Age 79 y/o , SCREENING TECHNIQUE: Procedure Code: [id number] Modality: MG Procedure: SCRN MAMM (CAD)W/EWA BILAT COMPARISON: Prior exam(s) were compared FINDINGS: TISSUE DENSITY: There are scattered areas of fibroglandular density. Bilateral Breast Mammographic Findings: No significant masses, calcifications or other abnormalities are identified. BI/SCRN MAMM (CAD)W/EWA BILAT IMPRESSION: No mammographic evidence of malignancy in either breast. OVERALL FINAL ASSESSMENT BI-RADS 1: NEGATIVE. RECOMMENDATION: Routine annual follow-up in 1 Year Additional Recommendation none A letter with findings and recommendations will be mailed to the patient. Reading Location: [id number]
== END | disposition home or self-care (01) ==
LOC: OPBI 05-24 07:12
PROVIDERS: PCP Family Medicine; Referring Provider Family Medicine; Visit Provider Family Medicine
DX: Z12.31 Encounter for screening mammogram for malignant neoplasm of breast (principal)
CPT/HCPCS: 77063; 77067

== ENCOUNTER → 2025-07-04 | Outpatient (CLI) | payer MEDICARE, OTHER, SELFPAY ==
--- NOTE | 2025-07-04 11:19 | VDLE_ITS ---
Reason For Study Reason For Study: Right leg pain RIGHT LEFT GSV is normal. CFV is compressible, spontaneous, phasic, competent, CFV is compressible, spontaneous, phasic, competent and demonstrates normal augmentation. and demonstrates normal augmentation. FV is compressible, spontaneous, phasic, competent and demonstrates normal augmentation. POP V is compressible, spontaneous, phasic, competent and demonstrates normal augmentation. T/P Trunk is compressible. PTV is compressible. RT PerV is compressible. Procedure This is a venous duplex using B-mode, color flow and spectral Doppler. Exam performed in department. A preliminary report was called and/or faxed to [facility]. VL/Venous Duplex US, Unilateral Interpretation Summary Deep veins of the right lower extremity are patent and compressible segmentally . There is no evidence of right lower extremity deep vein thrombosis. Valvular competence appears intact within the p roximal deep venous system on the right . The right great saphenous vein appears patent and compressible segmentally. The left common femoral vein is patent and compressible . Ordering Physician: Fer Hernandez Referring Physician: Alex Newell MD Performed By: Jessica Chandler RVT
--- NOTE | 2025-07-04 11:43 | RAD_ITS ---
PROCEDURE: HIP, UNI W/ PELVIS 2-3 VIEWS 07/04/2025 REASON FOR EXAM: PAIN TECHNIQUE: Procedure Code: RADHP Modality: DX Procedure: HIP, UNI W/ PELVIS 2-3 VIEWS COMPARISON: Lumbar spine study of 04/21/2022. RAD/HIP, UNI W/ Pelvis 2-3 Views IMPRESSION: Prominent degenerative changes are again seen of the visualized lower lumbar sp ine. Mild sacroiliac joint degenerative changes are noted. Partially visualized left hip prosthesis shows no complication. A right total hip prosthesis is in place, without evidence of loosening or meta llic fracture. No fracture or dislocation is noted. Reading Location: [place] [id number]
== END | disposition home or self-care (01) ==
LOC: CVS 11:18
PROVIDERS: PCP Family Medicine
DX: M25.551 Pain in right hip (principal); M79.661 Pain in right lower leg
CPT/HCPCS: 73502; 93971